=== PATIENT | female | born 1990 | race Caucasian/White ===

== ENCOUNTER 2017-02-27 04:18 | Emergency (ER) | payer OTHER ==
[~2017-02-27] VITALS: Ht 147.3 cm; Wt 59.0 kg
[~2017-02-27 04:18] MED LIST: ACETAMINOP325 MG/10 PO; DIAZEPAM5 MG PO; ESTRADIOL0.5 MG PO; FERROUS SULFAT134 MG PO; IRON325 M1; KLONOPIN2 MG PO; LIALDA1.2 GM PO; PROBIOTIC COMP1 EACH PO; RITALIN10 MG PO; VANCOMYCIN HCL250 MG PO
[2017-02-27] MEDS ORDERED: ACETAMINOPHEN 325 MG TAB PO ONE (04:30)
[2017-02-27] MEDS ORDERED: ACETAMINOPHEN 325 MG TAB ONE (04:35)
[2017-02-27 04:38] LABS: BILIRUBIN,URINE NEGATIVE (NEGATIVE); KETONES,URINE 1+ (NEGATIVE); LEUKOCYTE ESTERASE ,URINE 2+ (NEGATIVE); NITRITE,URINE NEGATIVE (NEGATIVE); PROTEIN,URINE DIPSTICK NEGATIVE (NEGATIVE); URINE UROBILINOGEN 0.2 mg/dL (0.2 - 1)
[2017-02-27 04:40] LABS: CLARITY,URINE SL CLOUDY (CLEAR); COLOR,URINE YELLOW (YELLOW)
[2017-02-27 04:46] LABS: STREPTOCOCCUS GRP A ANTIGEN NEGATIVE (NEGATIVE)
[2017-02-27 04:49] LABS: BACTERIA,URINE MODERATE /HPF; EPITHELIAL CELLS,URINE FEW /LPF; MUCUS,URINE MODERATE (RARE); WBC,URINE (MAN) 21-50 /HPF (0-5)
[2017-02-27 04:56] LABS: INFLUENZAE A&B ANTIGEN (RAPID) NEGATIVE (NEGATIVE)
[2017-02-27 04:57] LABS: AMPHETAMINES SCREEN,URINE NEGATIVE (NEGATIVE); BENZODIAZEPINES SCREEN,URINE NEGATIVE (NEGATIVE); CANNABINOIDS SCREEN,URINE POSITIVE (NEGATIVE); PHENCYCLIDINE SCREEN,URINE NEGATIVE (NEGATIVE)
--- NOTE | 2017-02-27 05:26 | Diagnostic Imaging Report ---
CHEST 2 VIEWS, Technique: CHEST 2 VIEWS Comparison: 03/05/2016 Clinical history: Cough, fever DISCUSSION: Normal appearance of the heart, mediastinum, lungs and pleural spaces. IMPRESSION: No acute abnormality Signed by: Dr Rosaline Hahn MD on 02/27/2017 5:23 AM
[2017-02-27 05:30] VITALS: BP 110/72
[2017-02-27] MEDS ORDERED: CEFTRIAXONE SOD 1 GM VIAL IM STA (05:34)
== END 2017-02-27 06:13 | disposition home or self-care (01) ==
LOC: ER 04:18
DX: R50.9 Fever, unspecified (principal); R05 Cough; J00 Acute nasopharyngitis [common cold]; N30.00 Acute cystitis without hematuria; D89.9 Disorder involving the immune mechanism, unspecified
CPT/HCPCS: 71020; 80307; 81001; 81025; 83518; 87070; 87400; 99283; J0696

== ENCOUNTER 2017-07-12 16:53 | Inpatient (IN) | payer MEDICARE, OTHER ==
[~2017-07-12] VITALS: Ht 147.3 cm; Wt 54.0 kg
--- OUTSIDE RECORDS SUMMARY | 2017-07-12 16:56 | XMS REPORT | Clinical Summary ---
Author Author [facility] Address Unknown Phone Unavailable Care Team Providers Care Dashboard Developer Name Role Phone PCP Unavailable Allergies Active Allergy Reactions Severity Noted Date Comments Hydromorphone (Bulk) Nausea And Vomiting 03/29/2017 constipation Fentanyl Nausea And Vomiting 03/29/2017 Current Medications Prescription Sig. Disp. Refills Start End Date Status Date methylphenidate (RITALIN) Take 10 mg by mouth as Active 20 MG tablet needed . hyoscyamine Take 0.125 mg by mouth Active (ANASPAZ,LEVSIN) 0.125 mg every 4 (four) hours as tablet needed for Cramping. vitamin Take 1 tablet by mouth Active w/qdxwkov-ospq-duowbt daily. ( PLUS) 27 mg iron- 1 mg Tab diphenoxylate-atropine Take 1 tablet by mouth 4 Active (LOMOTIL) 2.5-0.025 mg (four) times daily as per tablet needed for Diarrhea. clonazePAM (KLONOPIN) 1 Take 1 mg by mouth 2 Active MG tablet (two) times daily as needed for Anxiety. TURMERIC ROOT EXTRACT Take by mouth. Active ORAL ECHINACEA ORAL Take by mouth. Active KAVA ROOT ORAL Take by mouth. Active MAGNESIUM ORAL Take by mouth. Active buPROPion (WELLBUTRIN) 75 Take 75 mg by mouth 2 Active MG tablet (two) times daily. traMADol (ULTRAM) 50 mg Take 50 mg by mouth every Active tablet 6 (six) hours as needed for Pain. ACETAMINOPHEN WITH Take by mouth. Active CODEINE (TYLENOL-CODEINE #3 ORAL) LACTOBACILLUS ACIDOPHILUS Take by mouth. Active (PROBIOTIC ORAL) budesonide (ENTOCORT EC) Take 9 mg by mouth every 02/16/20 Discontin 3 mg 24 hr capsule morning . 17 ued clonazePAM (KLONOPIN) 2 Take 2 mg by mouth as 03/29/19 Discontin MG tablet needed for Anxiety . 18 ued loperamide (IMODIUM) 2 mg Take 2 mg by mouth 4 03/29/19 Discontin capsule (four) times daily as 18 ued needed for Diarrhea. calcium carbonate-vitamin Take 2 tablets by mouth 60 tablet 11 02/18/20 D3 (OSCAL-D) 500 daily. 16 17 mg(1,250mg) -200 unit per tablet mesalamine (CANASA) 1000 Place 1 suppository 30 0 02/18/20 02/18/20 MG suppository (1,000 mg total) rectally suppository 16 17 2 (two) times daily. budesonide (UCERIS) 9 mg Take 9 mg by mouth daily. 03/29/19 Discontin TaDE 18 ued HYDROcodone-acetaminophen Take 1 tablet by mouth 30 tablet 0 04/06/19 04/16/19 (NORCO 10-325) 10-325 mg every 6 (six) hours as 18 18 per tablet needed for up to 10 days. Max Daily Amount: 4 tablets Active Problems Problem Noted Date Ulcerative colitis (HCC) 04/04/2017 Lower abdominal pain 02/16/2016 Ulcerative colitis, acute (HCC) 02/16/2016 Bipolar affective disorder in remission ([facility]) 02/16/2016 Encounters Date Type Specialty Care Team Description 04/04/2017 [facility] General Internal Medicine Maureen Malloy MD - Encounter 04/07/2017 04/04/2017 Procedure Pass 04/04/2017 Surgery Maureen Malloy MD LAPAROSCOPY,COLECTOMY TOTAL 04/01/2017 Anesthesia Neelima Goetz MD Event 03/29/2017 Hospital Pre-Admission Testing Maureen Malloy MD Bipolar affective Encounter disorder in remission (HCC) 03/07/2017 Emergency Emergency Medicine Bipolar affective disorder in remission (HCC) 03/07/2017 Orders Only General Internal Medicine 02/15/2017 [facility] Lety Perez MD Encounter 02/15/2017 Anesthesia Chase Alvarez Event MD Nabil 02/15/2017 Procedure Pass 02/15/2017 Surgery Lety Perez MD COLONOSCOPY,BIOPSY after 07/11/2016 Family History Medical History Relation Name Comments Hypertension Father Ulcerative colitis Father COPD Mother Relation Name Status Comments Father Mother Social History Tobacco Use Types Packs/Day Years Used Date Never Smoker Smokeless Tobacco: Never Used Alcohol Use Drinks/Week oz/Week Comments Yes 2 Standard 1.2 occasional drinks or equivalent Sex Assigned at Date Recorded Not on file Last Filed Vital Signs Vital Sign Reading Time Taken Blood Pressure 116/70 04/07/2017 12:40 PM DOCK ATTEND[employer] Pulse 90 04/07/2017 12:40 PM DOCK ATTENDANT Temperature 36.8 C (98.3 F) 04/07/2017 12:40 PM DOCK ATTENDANT Respiratory Rate 18 04/07/2017 12:40 PM DOCK ATTENDANT Oxygen Saturation 99% 04/07/2017 12:40 PM DOCK ATTENDANT Inhaled Oxygen - - Concentration Weight 51.1 kg (112 lb 9.6 oz) 03/29/2017 10:00 AM DOCK ATTENDANT Height 149.9 cm (4' 11") 03/29/2017 10:00 AM DOCK ATTENDANT Body Mass Index 22.74 03/29/2017 10:00 AM DOCK ATTENDANT Plan of Treatment Not on file Procedures Procedure Name Priority Date/Time Associated Diagnosis Comments CYSTOSCOPY,INSERTION 04/04/2017 Ulcerative colitis, URETERAL STENTS 7:30 AM DOCK ATTENDANT unspecified with unspecified complications (CODE) (HCC) Special Needs (LITHOTOMY POSITION, UROLOGY WILL BE CALLING IN SOME STENTS FOR THE PATIENT) LAPAROSCOPY,ILEOSTOMY 04/04/2017 Ulcerative colitis, 7:30 AM DOCK ATTENDANT unspecified with unspecified complications (CODE) (HCC) Special Needs (LITHOTOMY POSITION, UROLOGY WILL BE CALLING IN SOME STENTS FOR THE PATIENT) LAPAROSCOPY,COLECTOMY 04/04/2017 Ulcerative colitis, TOTAL 7:30 AM DOCK ATTENDANT unspecified with unspecified complications (CODE) (HCC) Special Needs (LITHOTOMY POSITION, UROLOGY WILL BE CALLING IN SOME STENTS FOR THE PATIENT) COLONOSCOPY,BIOPSY 02/15/2017 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 Component Value Ref Range WBC 14.3 (H) 3.5 - 10.5 K/ L RBC 2.98 (L) 3.93 - 5.22 M/ L Hemoglobin 8.2 (L) 11.2 - 15.7 GM/DL Hematocrit 26.6 (L) 34.1 - 44.9 % MCV 89.3 79.4 - 94.8 fL MCH 27.5 25.6 - 32.2 pg MCHC 30.8 (L) 32.2 - 35.5 GM/DL RDW 15.6 (H) 11.7 - 14.4 % Platelets 681 (H) 150 - 450 K/CU MM MPV 8.1 (L) 9.4 - 12.3 fL nRBC 0 0 - 0 /100 WBC Specimen Performing Laboratory Blood - Arm, [address] [address] * Phosphorus (04/07/2017 5:11 AM) Only the most recent of 3 results within the time period is included. Component Value Ref Range Phosphorus 3.6 2.3 - 4.7 mg/dL Specimen Performing Laboratory Blood - Arm, [address] [address] * Magnesium (04/07/2017 5:11 AM) Only the most recent of 3 results within the time period is included. Component Value Ref Range Magnesium 1.5 (L) 1.6 - 2.6 mg/dL Specimen Performing Laboratory Blood - Arm, [address] [address] * Basic Metabolic Panel (04/07/2017 5:11 AM) Only the most recent of 4 results within the time period is included. Component Value Ref Range Sodium 140 136 - 145 meq/L Potassium 3.7 3.5 - 5.1 meq/L Chloride 107 98 - 107 meq/L CO2 26 22 - 29 meq/L BUN 4 (L) 7 - 21 mg/dL Creatinine 0.49 (L) 0.57 - 1.25 mg/dL Glucose 85 70 - 105 mg/dL Calcium 8.1 (L) 8.4 - 10.2 mg/dL EGFR 153Comment: ESTIMATED GFR IS NOT ACCURATE mL/min/1.73 sq m CREATININE CLEARANCE IN PREDICTING GLOMERULAR FILTRATION RATE. ESTIMATED GFR IS NOT APPLICABLE FOR DIALYSIS PATIENTS. Specimen Performing Laboratory Blood - Arm, Right [facility] [address] * Tissue Exam (04/04/2017 12:41 PM) Component Value Ref Range Case Report Surgical Pathology Report Case: [id number] Authorizing Provider: Maureen Malloy MD Collected: 04/04/2017 1241 Ordering Location: [facility] Received: 04/04/2017 1328 SERVICES Pathologist: Melanie Camacho MD Specimen: Large Intestine, NOS, Total Colectomy DIAGNOSIS COLON, TOTAL COLECTOMY: - CHRONIC ACTIVE COLITIS (SEE COMMENT) - NEGATIVE FOR GRANULOMA - ILEAL MARGIN UNREMARKABLE - COLONIC MARGIN IS INVOLVED BY CHRONIC ACTIVE COLITIS - NEGATIVE FOR DYSPLASIA OR MALIGNANCY - NEGATIVE FOR VIRAL CYTOPATHIC CHANGES - ALL FIFTY -SEVEN LYMPH NODES SHOW BENIGN AND REACTIVE FEATURES; NEGATIVE FOR MALIGNANCY - APPENDIX: - ACUTE APPENDICITIS WITH MUCOSAL NECROSIS AND SEVERE SEROSITIS - NEGATIVE FOR DYSPLASIA OR MALIGNANCY - SEE COMMENT Signing Pathologist Direct Phone Line: [phone] COMMENT Sections show chronic active colitis, involving colon with variable degrees of severity. The left colon is most severely affected. There are numerous crypt abscesses, cryptitis, crypt architectural distortions and surface ulcerations with underlying granulation tissue. Lymphoplasmacytic inflammation with occasional lymphoid follicles are seen in the lamina propria. No granulomas are seen in any of the sections examined. The inflammation is mostly limited to mucosa with minimal inflammation in the muscularis propria. Severe serositis is present. Terminal ileum appears free of inflammation,. Appendix shows mucosal necrosis, serositis and mild acute inflammation in the wall. The proximal (ileal) margin is unremarkable. Distal (colonic) margin shows chronic active colitis with surface erosion and granulation tissue. There is atypia, favored reactive. No dysplasia or malignancy seen. No viral inclusions are present.The findings are compatible with patient's history of inflammatory bowel disease, ulcerative colitis. All Clinical and radiologic correlation is recommended. CPT Code(s) 90512 CLINICAL HISTORY Ulcerative colitis SPECIMEN SOURCE Total colectomy GROSS DESCRIPTION The specimen is received in a formalin-filled container and labeled with the patient's information and labeled "total colectomy" and consists of a total colectomy measuring 85 cm in length ranging in circumference from 4 to 5.5 cm, terminal ileum measuring 2 cm in length x 3 cm in circumference and appendix measuring 4.6 x 4.6 cm in length x 0.6 cm in diameter. Adipose tissue has thickness of 3 cm. The serosa is elmore-red and dull with adhesions. Majority of the specimen has linear ulcerations creating a cobblestone effect and thickened wall up to 0.8 cm. There is 12 cm in length of normal proximal colon mucosa. The remaining mucosa also has a elmore-red dusky appearance. Grossly, no masses or abnormalities are seen. Fat yields 37 possible elmore lymph nodes on the right side measuring up to 1 cm. Left side contains 11 possible elmore lymph nodes measuring up to 2 cm. Section code: A1, resection margin en face; A2, appendix; A3, ileum ileocecal valve and cecum; A4 and A5, right colon; A6, hepatic flexure; A7 and A8, transverse colon; A9, splenic flexure; A10 and A11, left colon;A12, six possible lymph nodes, right colon; A13, five possible lymph node right side; A14,seven possible lymph nodes right side/ A15, fivepossible lymph nodes right side; A16 through A18, two possible lymph nodes in each cassette, one inked blue, right side; A19, five possible lymph nodes right side; A20, five possible lymph nodes right side; A21, onepossible lymph node right side; A22, one lymph node bisected, left side; A23 and A24, five possible lymph nodes in each cassette, left side. CG/pl MICROSCOPIC DESCRIPTION PERFORMED Specimen Performing Laboratory Tissue - Large Intestine, [facility] NOS [address] [place], [place] [id number] * POCT , urine (04/04/2017 7:00 AM) Only the most recent of 2 results within the time period is included. Component Value Ref Range Test Urine, POC Negative Control line present?, Yes POC Background clear?, POC Yes UPT Cassette Lot #, POC [id number] UPT Cassette Expiration 08/01/2018 Date, POC Specimen Performing Laboratory Urine * TRANSFUSION SERVICE REPORT - SCAN (03/30/2017 5:53 PM) * Type and screen, automated (03/29/2017 11:17 AM) Component Value Ref Range ABO/RH AUTOMATED (BEAKER) B POSITIVE Ab Scrn NEGATIVE Specimen Performing [place] [address] * CBC with platelet count + automated diff (03/29/2017 11:17 AM) Only the most recent of 2 results within the time period is included. Component Value Ref Range WBC 16.8 (H) 3.5 - 10.5 K/ L RBC 3.75 (L) 3.93 - 5.22 M/ L Hemoglobin 10.5 (L) 11.2 - 15.7 GM/DL Hematocrit 33.2 (L) 34.1 - 44.9 % MCV 88.5 79.4 - 94.8 fL MCH 28.0 25.6 - 32.2 pg MCHC 31.6 (L) 32.2 - 35.5 GM/DL RDW 15.2 (H) 11.7 - 14.4 % Platelets 773 (H) 150 - 450 K/CU MM MPV 8.4 (L) 9.4 - 12.3 fL nRBC 0 0 - 0 /100 WBC % Neutros 61 % % Lymphs 20 % % Monos 7 % % Eos 11 % % Baso 1 % # Neutros 10.27 (H) 1.56 - 6.13 K/ L # Lymphs 3.36 1.18 - 3.74 K/ L # Monos 1.15 (H) 0.24 - 0.36 K/ L # Eos 1.81 (H) 0.04 - 0.36 K/ L # Baso 0.08 0.01 - 0.08 K/ L Immature 1 0 - 1 % Granulocytes-Relative Specimen Performing [place] [address] * CBC with platelet count + automated diff (03/29/2017 11:17 AM) Only the most recent of 2 results within the time period is included. Specimen Performing Laboratory Blood Narrative The following orders were created for panel order CBC with platelet count + automated diff. Procedure Abnormality Status --------- - ------ CBC with platelet count ...[[id number]]AbnormalFinal result Please view results for these tests on the individual orders. * ECG 12 lead (03/29/2017 11:16 AM) Only the most recent of 2 results within the time period is included. Specimen Performing Laboratory GE MUSE Narrative Ventricular Rate 95 BPM Atrial Rate 95 BPM P-R Interval 148 ms QRS Duration 68 ms Q-T Interval 346 ms QTC Calculation(Bazett) 434 ms P [place] 73 degrees R [place] 52 degrees T [place] 33 degrees Normal sinus rhythm with sinus arrhythmia Normal ECG When compared with ECG of 07-MAR-2017 16:47, No significant change was found Confirmed by MD Duncan Roberto ([id number]) on 03/29/2017 1:37:20 PM Procedure Note Interface, External Ris In - 03/29/2017 1:37 PM DOCK ATTENDANT Ventricular Rate 95 BPM Atrial Rate 95 BPM P-R Interval 148 ms QRS Duration 68 ms Q-T Interval 346 ms QTC Calculation(Bazett) 434 ms P [place] 73 degrees R [place] 52 degrees T [place] 33 degrees Normal sinus rhythm with sinus arrhythmia Normal ECG When compared with ECG of 07-MAR-2017 16:47, No significant change was found Confirmed by MD Duncan Roberto ([id number]) on 03/29/2017 1:37:20 PM * Rapid Strep A screen (03/07/2017 7:06 PM) Component Value Ref Range Strep A Ag Negative Negative Specimen Performing Laboratory Throat [address] [address] * Comprehensive metabolic panel (03/07/2017 5:33 PM) Component Value Ref Range Protein, Total 6.5 6.0 - 8.3 gm/dL Albumin 2.9 (L) 3.5 - 5.0 g/dL Alkaline Phosphatase 146 40 - 150 U/L Total Bilirubin <0.3 0.2 - 1.2 mg/dL Sodium 140 136 - 145 meq/L Potassium 4.1 3.5 - 5.1 meq/L Chloride 107 98 - 107 meq/L CO2 26 22 - 29 meq/L BUN 9 7 - 21 mg/dL Creatinine 0.59 0.57 - 1.25 mg/dL Glucose 93 70 - 105 mg/dL Calcium 9.0 8.4 - 10.2 mg/dL AST 13 5 - 34 U/L ALT 12 6 - 55 U/L EGFR 123Comment: ESTIMATED GFR IS NOT ACCURATE mL/min/1.73 sq m CREATININE CLEARANCE IN PREDICTING GLOMERULAR FILTRATION RATE. ESTIMATED GFR IS NOT APPLICABLE FOR DIALYSIS PATIENTS. Specimen Performing Laboratory Blood - Arm, Right [address] [address] * ANATOMIC PATHOLOGY SCANNED - SCAN (02/21/2017 10:32 AM) * REPORT OF PROCEDURE - ENDOSCOPY URL (02/15/2017 4:06 PM) after 07/11/2016
--- OUTSIDE RECORDS SUMMARY | 2017-07-12 16:56 | XMS REPORT | Clinical Summary ---
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 Disp. Refills Start End Date Status Date tiZANidine (ZANAFLEX) 4 05/10/19 Active MG tablet 18 clonAZEPAM (KlonoPIN) 2 TAKE 1/2 -1 TABLETS BY 0 04/18/19 Active MG tablet MOUTH DAILY NEEDED 18 (PRN) buPROPion SR (WELLBUTRIN Take 150 mg by mouth 0 04/18/19 Active SR) 150 MG 12 hr tablet daily. 18 clindamycin (CLEOCIN) 300 Take 1 capsule (300 mg 21 capsule 0 03/15/19 MG capsule total) by mouth 3 (three) 18 18 times a day for 7 days. traMADol (ULTRAM) 50 mg Take 1 tablet (50 mg 20 tablet 0 03/08/19 tablet total) by mouth every 6 18 18 (six) hours as needed for moderate pain for up to 3 days. acetaminophen-codeine Take 1-2 tablets by mouth 15 tablet 0 03/11/19 03/16/19 (TYLENOL WITH CODEINE #3) every 6 (six) hours as 18 18 300-30 mg per tablet needed for moderate pain for up to 5 days. naproxen (NAPROSYN) 500 Take 1 tablet (500 mg 60 tablet 0 03/11/19 04/10/19 MG tablet total) by mouth 2 (two) 18 18 times a day with meals for 30 days. aerosol holding chamber Inhale 1 each once for 1 1 each 0 05/14/19 05/14/19 spacer dose. Use as directed 18 18 azithromycin (ZITHROMAX Take 2 tablets the first 6 tablet 0 05/14/19 05/19/19 Z-TOYA) 250 MG tablet day, then 1 tablet daily 18 18 for 4 days. methylPREDNISolone follow package directions 21 tablet 0 05/14/19 (MEDROL DOSEPAK) 4 mg 18 18 tablet codeine-guaifenesin Take 10 mL by mouth 3 200 mL 0 05/14/19 (GUAIFENESIN AC) 10-100 (three) times a day as 18 18 mg/5 mL liquid needed for cough for up to 10 days. albuterol (PROAIR Inhale 2 puffs every 4 1 Inhaler 0 05/14/19 HFA,PROVENTIL (four) hours as needed 18 18 HFA,VENTOLIN HFA) 90 for wheezing for up to 30 mcg/actuation inhaler days. diazePAM (VALIUM) 5 MG Take 1 tablet (5 mg 6 tablet 0 05/14/1905/18 tablet total) by mouth every 8 18 18 (eight) hours as needed for muscle spasms for up to 5 days. Active Problems Not on file Encounters Date Type Specialty Care Team Description 05/13/2017 Emergency Emergency Medicine Violet Jules MD Acute bronchitis, unspecified organism (Primary Dx) 03/11/2017 Emergency Emergency Medicine Sánchez Moraes MD Cough ( Primary Dx) 03/07/2017 Emergency Emergency Medicine Jigar Leon MD Dental impaction (Primary - Dx); 03/08/2017 Leukocytosis, unspecified type; Thrombocytosis after 07/11/2016 Social History Tobacco Use Types Packs/Day Years Used Date Never Smoker Smokeless Tobacco: Never Used Alcohol Use Drinks/Week oz/Week Comments Yes occasionally Sex Assigned at Date Recorded Not on file Last Filed Vital Signs Vital Sign Reading Time Taken Blood Pressure 107/64 05/13/2017 4:00 PM CDT Pulse 86 05/13/2017 4:00 PM CDT Temperature 36.3 C (97.3 F) 05/13/2017 4:00 PM CDT Respiratory Rate 18 05/13/2017 4:00 PM CDT Oxygen Saturation 100% 05/13/2017 4:00 PM CDT Inhaled Oxygen - - Concentration Weight 45.4 kg (100 lb) 05/13/2017 12:47 PM CDT Height 147.3 cm (4' 10") 05/13/2017 12:47 PM CDT Body Mass Index 20.9 05/13/2017 12:47 PM CDT Plan of Treatment Health Maintenance Due Date Last Done Comments PAP SMEAR 11/09/2011 INFLUENZA VACCINE 10/02/2017 Procedures Procedure Name Priority Date/Time Associated Diagnosis Comments ED REFERRAL TO [facility] 05/13/2017 ANGLICAN PHYSICIAN 3:53 PM CDT ORGANIZATION after 07/11/2016 Results * CT Angiogram Pe Chest (05/13/2017 3:26 PM) Only the most recent of 2 results within the time period is included. Specimen Performing Laboratory [facility] [address] [place] [address] Narrative EXAMINATION: CT ANGIOGRAM PE CHEST CLINICAL HISTORY: shortness of breath TECHNIQUE: CT angiographic images of the chest were obtained during intravenous administration of iodinated contrast. Computerized reformatted images and 3-D MIP images were also obtained and archived (CT pulmonary embolus protocol). Radiation dose reduction technique was utilized. COMPARISON: 03/11/2017 IMPRESSION: 1.No evidence of pulmonary embolus. 2.No mediastinal or hilar masses have developed. 3.Interval decrease in size of right middle lobe opacity, probably related to resolving inflammatory process. 4.There are no pleural effusions. [facility]-[id number] Procedure Note Interface, Radiology Results Incoming - 05/13/2017 3:35 PM CDT EXAMINATION: CT ANGIOGRAM PE CHEST CLINICAL HISTORY: shortness of breath TECHNIQUE: CT angiographic images of the chest were obtained during intravenous administration of iodinated contrast. Computerized reformatted images and 3-D MIP images were also obtained and archived (CT pulmonary embolus protocol). Radiation dose reduction technique was utilized. COMPARISON: 03/11/2017 IMPRESSION: 1. No evidence of pulmonary embolus. 2. No mediastinal or hilar masses have developed. 3. Interval decrease in size of right middle lobe opacity, probably related to resolving inflammatory process. 4. There are no pleural effusions. [facility]-[id number] * Estimated GFR (05/13/2017 2:17 PM) Only the most recent of 3 results within the time period is included. Component Value Ref Range GFR Non Af Amer >90 mL/min/1.73 m2 GFR Af Amer >90 mL/min/1.73 m2 Comment: Chronic kidney disease: <60 mL/min/1.73m2 Kidney failure: <15 mL/min/1.73m2 The estimated GFR is calculated from the IDMS-traceable Modification of Diet in Renal Disease Equation. The accuracy of the calculation is poor when the creatinine is normal. Calculated values >90 mL/min/1.73m2 are not reported. This equation has not been validated in children (<18 years), women, the elderly (>70 years), or ethnic groups other than Caucasians and Americans. Specimen Performing Laboratory Plasma specimen [facility], [address] [address] * CBC with platelet and differential (05/13/2017 2:17 PM) Only the most recent of 3 results within the time period is included. Component Value Ref Range WBC 12.90 (H) 4.50 - 11.00 k/uL RBC 5.60 (H) 4.20 - 5.50 m/uL HGB 15.6 12.0 - 16.0 g/dL HCT 46.8 37.0 - 47.0 % MCV 83.6 82.0 - 100.0 fL MCH 27.9 27.0 - 34.0 pg MCHC 33.3 31.0 - 37.0 g/dL RDW - SD 46.9 37.0 - 55.0 fL MPV 10.6 8.8 - 13.2 fL Platelet count 402 (H) 150 - 400 k/uL Neutrophils 79.6 (H) 39.0 - 69.0 % Lymphocytes 12.6 (L) 25.0 - 45.0 % Monocytes 6.0 0.0 - 10.0 % Eosinophils 1.6 0.0 - 5.0 % Basophils 0.2 0.0 - 1.0 % Specimen Performing Laboratory Blood [facility], [address] [address] * Basic metabolic panel (05/13/2017 2:17 PM) Only the most recent of 2 results within the time period is included. Component Value Ref Range Glucose 98 73 - 118 mg/dL BUN 2 (L) 7 - 22 mg/dL Calcium 9.4 8.0 - 10.3 mg/dL Creatinine 0.4 (L) 0.6 - 1.2 mg/dL Sodium 133 128 - 145 mEq/L Potassium 4.0 3.6 - 5.1 mEq/L Chloride 95 (L) 98 - 108 mEq/L CO2 26 18 - 33 mEq/L Anion gap 12 7 - 15 mEq/L Comment: Starting from June , anion gap calculation no longer incorporates potassium. Please note the change. Specimen Performing Laboratory Plasma specimen [facility] [place] [address] * Urinalysis (05/13/2017 1:19 PM) Only the most recent of 3 results within the time period is included. Component Value Ref Range Glucose, UA Negative Negative Bilirubin, UA Negative Negative Ketones, UA Negative Negative Specific gravity, UA 1.010 1.001 - 1.035 Blood, UA Large (A) Negative pH, UA 6.0 5.0 - 8.5 Protein, UA Trace (A) Negative Urobilinogen, UA <2.0 <2.0 Nitrite, UA Negative Negative Leukocyte esterase, UA Moderate (A) Negative Color, UA Yellow Appearance, UA Clear Specimen Performing Laboratory Urine [facility] [place] [address] * hCG qualitative, urine screen (05/13/2017 1:19 PM) Only the most recent of 2 results within the time period is included. Component Value Ref Range hCG qualitative, urine NegativeComment: Sensitivity of HCG test: 25 mIU/mL Specimen Performing Laboratory Urine [facility] [place] [address] * ECG ED Preliminary Interpretation - NOT AN ORDER (05/13/2017 1:03 PM) Only the most recent of 3 results within the time period is included. Clau Jules MD 05/13/20177:04 PM ECG ED Preliminary Interpretation - Not an Order Performed by: VIOLET JULES Authorized by: VIOLET JULES ECG reviewed by ED Physician in the absence of a waiter and cashier: no Previous ECG: Previous ECG:Unavailable Interpretation: Interpretation: normal Rate: ECG rate:102 ECG rate assessment: tachycardic Rhythm: Rhythm: sinus tachycardia Ectopy: Ectopy: none QRS: QRS axis:Normal Conduction: Conduction: normal ST segments: ST segments:Normal T waves: T waves: normal * ECG 12 lead (05/13/2017 12:59 PM) Only the most recent of 3 results within the time period is included. Component Value Ref Range Ventricular rate 102 Atrial rate 102 AK interval 134 QRSD interval 68 QT interval 328 QTC interval 427 P axis 1 76 QRS axis 1 50 T wave axis 32 EKG impression Sinus tachycardia-Otherwise normal ECG-In automated comparison with ECG of 11-MAR-2017 12:56,-No significant change was found- Specimen Performing Laboratory [facility] [address] [place] [address] * XR Chest 2 Vw (03/11/2017 2:50 PM) Specimen Performing Laboratory [facility] [address] [place] [address] Narrative EXAMINATION:XR CHEST 2 VW CLINICAL HISTORY:Chest Pain, Cough XR CHEST 2 VWimages are submitted COMPARISON:NONE FINDINGS: Lines/tubes:None. Heart and mediastinum:Unremarkable Lungs:The lungs are well inflated and clear. There is no evidence of pneumonia or pulmonary edema. Pleura:There is no pleural effusion or pneumothorax. Bones:Mild dextroconvex scoliotic deviation of the thoracic spine. IMPRESSION: Negative for acute cardiopulmonary disease. [facility]-[id number] Procedure Note Interface, Radiology Results Incoming - 03/11/2017 3:03 PM REGIONAL DIRECTOR EXAMINATION: XR CHEST 2 VW CLINICAL HISTORY: Chest Pain, Cough XR CHEST 2 VW images are submitted COMPARISON: NONE FINDINGS: Lines/tubes: None. Heart and mediastinum: Unremarkable Lungs: The lungs are well inflated and clear. There is no evidence of pneumonia or pulmonary edema. Pleura: There is no pleural effusion or pneumothorax. Bones: Mild dextroconvex scoliotic deviation of the thoracic spine. IMPRESSION: Negative for acute cardiopulmonary disease. [facility]-[id number] * Smear review (03/11/2017 1:38 PM) Component Value Ref Range Platelet slide review Mkd increased (A) Polychromasia Moderate Enlarged platelets Moderate (A) Specimen Performing Laboratory [facility], [address] [address] * Troponin, I-Stat (03/11/2017 1:38 PM) Component Value Ref Range Troponin, I-Stat 0.00 0.00 - 0.08 ng/mL Comment: 0.09 - 1.49 ng/ml May indicate increased risk of acute coronary syndrome. >=1.5 ng/ml Consistent with acute myocardial infarction. The diagnostic value of a single normal or non-diagnostic result is questionable. Serial samples at 2-6 hour intervals are required to rule out acute myocardial injury. Specimen Performing Laboratory Plasma specimen [facility], [address] [address] * B natriuretic pep, I-Stat (03/11/2017 1:38 PM) Component Value Ref Range BNP, I-Stat <20 0 - 100 pg/mL Specimen Performing Laboratory Blood [facility] PATHOLOGY AND [facility], [address] [address] * D-dimer (03/11/2017 1:38 PM) Component Value Ref Range D-dimer 0.65 (H) 0.00 - 0.40 ug/mL FEU Comment: Units are ug/ml Fibrinogen Equivalent Unit. When combined with low clinical probability, D-dimer results of less than 0.5 ug/ml FEU have a good negative predictive value in excluding PE or DVT. For D-dimer results greater than 0.5 ug/ml FEU further testing is indicated if PE or DVT is suspected clinically. Elevated D-dimer results have been reported in DVT, PE, and DIC cases and may indicate the presence of a clot. D-dimer results may be elevated due to old age, , inflammatory diseases, trauma, post-operative states, sepsis, and malignancies. Specimen Performing Laboratory Blood [facility] DEPARTMENT OF PATHOLOGY AND GENOMIC MEDICINE [address] [place] [address] * Lactic acid, I-Stat (03/07/2017 11:08 PM) Component Value Ref Range Lactic acid, I-Stat 1.3 0.5 - 2.2 mmol/L Specimen Performing Laboratory Plasma specimen [facility], [address] [address] * Manual differential (03/07/2017 11:08 PM) Component Value Ref Range Manual differential PERFORMED Neutrophils 66.0 39.0 - 69.0 % Lymphocytes 17.0 (L) 25.0 - 45.0 % Monocytes 8.0 0.0 - 10.0 % Eosinophils 9.0 (H) 0.0 - 5.0 % Basophils 0.0 0.0 - 1.0 % Platelet slide review Mkd increased (A) Enlarged platelets Moderate (A) Giant platelets Occasional Specimen Performing Laboratory [facility] DEPARTMENT OF PATHOLOGY AND GENOMIC MEDICINE [address] [place] [address] * Comprehensive metabolic panel (03/07/2017 11:08 PM) Component Value Ref Range Sodium 137 128 - 145 mEq/L Potassium 4.3 3.6 - 5.1 mEq/L CO2 27 18 - 33 mEq/L Chloride 107 98 - 108 mEq/L Glucose 87 73 - 118 mg/dL Calcium 8.8 8.0 - 10.3 mg/dL BUN 4 (L) 7 - 22 mg/dL Creatinine 0.7 0.6 - 1.2 mg/dL Alkaline phosphatase 128 42 - 141 U/L ALT 19 10 - 47 U/L AST 25 11 - 38 U/L Total bilirubin 0.4 0.2 - 1.6 mg/dL Albumin 2.6 (L) 3.3 - 5.5 g/dL Protein 7.1 6.4 - 8.1 g/dL Anion gap 3 (L) 7 - 15 mEq/L Comment: Starting from June , anion gap calculation no longer incorporates potassium. Please note the change. A/G ratio 0.6 (L) 0.7 - 3.8 Specimen Performing Laboratory Plasma specimen [facility] OF [facility]OLOGY [facility] [place] [address] * Blood culture, aerobic & anaerobic (03/07/2017 11:05 PM) Only the most recent of 2 results within the time period is included. Component Value Ref Range Blood culture isolate No growth after 5 days of incubation. Comment: Specimen Information Specimen Source: Blood Specimen Site: Hand, left Specimen Performing Laboratory Blood - Hand, left [facility] DEPARTMENT OF PATHOLOGY AND GENOMIC MEDICINE [address] [place] [address] * Influenza antigen (03/07/2017 10:53 PM) Component Value Ref Range Influenza antigen Negative for Influenza A/B antigen. Comment: Specimen Information Specimen Source: Nares Specimen Site: Not specified Specimen Performing Laboratory Nares - Not specified [facility] [place] [address] after 07/11/2016 Insurance Payer Benefit Subscriber ID Type Phone Address Plan / Group [employer] TH xxxxxxxxxxxx Exchange EXCHANGE [facility] EXCHANGE [employer] E
--- OUTSIDE RECORDS SUMMARY | 2017-07-12 16:56 | XMS REPORT ---
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 Problem Name Problem Code Onset Date Status Entry Date Provider Comment Standard Description Annotate IUD insertion V25.11 Active Shoshana Franks MD Encounter for insertion of intrauterine contraceptive device Contraception counseling V25.09 Active Shoshana Franks MD Encounter for other general counseling and advice on contraceptive management Medication List Medication Instructions Start Date Stop Date Generic Name NDC Status Provider Patient Instruction CLONAZEPAM TABLET CLONAZEPAM TABS 69370463631 Active Shoshana Franks MD Active WELLBUTRIN TABLET BUPROPION HCL TABS 96740511078 Active Shoshana Franks MD Active Vital Signs Date Name Value Unit Range Description blood pressure, diastolic 69 mm[Hg] BP covarrubias blood pressure, systolic 121 mm[Hg] BP sys height E&M 59 [in_us] Bdy height pulse rate E&M 80 /min Heart rate respiratory rate E&M 17 /min Resp rate temperature E&M 98.2 [degF] Body temperature weight E&M 129 [lb_av] Weight Measured blood pressure, diastolic 67 mm[Hg] BP covarrubias blood pressure, systolic 102 mm[Hg] BP sys height E&M 59 [in_us] Bdy height pulse rate E&M 91 /min Heart rate respiratory rate E&M 16 /min Resp rate temperature E&M 98.2 [degF] Body temperature weight E&M 130 [lb_av] Weight Measured Diagnostic Results Date Name Value Unit Range Description Office Visit: Procedures Rm#2 - Chemistry beta HCG, urine, semiquantitative negative Encounters Date Encounter Provider Code Facility 14:01:02 PRICING STRATEGIST Est Patient Problem Focus - 85380 Shoshana Franks MD CPT-47403 [facility] OB 12:35:55 PRICING STRATEGIST New Patient Problem Focus - 40965 Shoshana Franks MD CPT-89283 [facility] OB Procedures Code Procedure Name Date Entry Date Standard Description CPT-53197 IUD Insertion 14:01:03 PRICING STRATEGIST
--- OUTSIDE RECORDS SUMMARY | 2017-07-12 16:56 | XMS REPORT ---
Author [facility] Address Unknown Phone Unavailable Care Team Providers Care Health Management Consultant Name Role Phone MAUREEN SRIVASTAVA Unavailable Unavailable KENIA DIXON Unavailable Unavailable Problems This patient has no known problems. Allergies, Adverse Reactions, Alerts This patient has no known allergies or adverse reactions. Medications This patient has no known medications. Results Test Description Test Time Test Comments Text Results Atomic Results Result Comments TISSUE EXAM 2017-04-08 14:59:00 Surgical Pathology Report Case: [id number] Authorizing Provider: Maureen Srivastava MD Collected: 04/04/2017 1241 Ordering Location: [facility] PERIOPERATIVE Received: 2017 1328 SERVICES Pathologist: Melanie Camacho MD Specimen: Large Intestine, NOS, Total Colectomy COLON, TOTAL COLECTOMY:- CHRONIC ACTIVE COLITIS (SEE COMMENT) - NEGATIVE FOR GRANULOMA - ILEAL MARGIN UNREMARKABLE- COLONIC MARGIN IS INVOLVED BY CHRONIC ACTIVE COLITIS- NEGATIVE FOR DYSPLASIA OR MALIGNANCY- NEGATIVE FOR VIRAL CYTOPATHIC CHANGES- ALL FIFTY -SEVEN LYMPH NODES SHOW BENIGN AND REACTIVE FEATURES; NEGATIVE FOR MALIGNANCY- APPENDIX: - ACUTE APPENDICITIS WITH MUCOSAL NECROSIS AND SEVERE SEROSITIS - NEGATIVE FOR DYSPLASIA OR MALIGNANCY- SEE COMMENT Signing Pathologist Direct Phone Line : [phone] signed by Melanie Camacho MD on 04/08/2017 at 2:59 PMSections show chronic active colitis, involving colon with [...] All Clinical and radiologic correlation is recommended. [id number] colitisTotal colectomyThe specimen is received in a formalin-filled container [...] lymph nodes in each cassette, one inked blue , right side; A19, five possible lymph nodes right side; A20, five possible lymph nodes right side; A21, onepossible lymph node right side; A22, one lymph node bisected, left side; A23 and A24, five possible lymph nodes in each cassette, left side. CG/pl PERFORMED PHOSPHORUS 2017-04-07 06:41:00 PHOSPHORUS (BEAKER) (test qljo=591) 3.6 mg/dL 2.3-4.7 [id number] 06:41:00* Test Item Value Reference Range Comments MAGNESIUM (BEAKER) (test wpih=575) 1.5 mg/dL 1.6-2.6 BASIC METABOLIC [id number] 06:41:00* Test Item Value Reference Range Comments SODIUM (BEAKER) (test zxgo=945) 140 meq/L 136-145 POTASSIUM (BEAKER) (test yujl=496) 3.7 meq/L 3.5-5.1 CHLORIDE (BEAKER) (test bele=383) 107 meq/L 98-107 CO2 (BEAKER) (test vrej=496) 26 meq/L 22-29 BLOOD UREA NITROGEN (BEAKER) (test cksv=926) 4 mg/dL 7-21 CREATININE (BEAKER) (test pwnj=212) 0.49 mg/dL 0.57-1.25 GLUCOSE RANDOM (BEAKER) (test cmnd=794) 85 mg/dL 70-105 CALCIUM (BEAKER) (test wbof=554) 8.1 mg/dL 8.4-10.2 EGFR (BEAKER) (test bpwr=4563) 153 mL/min/1.73 sq m ESTIMATED GFR IS NOT ACCURATE CREATININE CLEARANCE IN PREDICTING GLOMERULAR FILTRATION RATE. ESTIMATED GFR IS NOT APPLICABLE FOR DIALYSIS PATIENTS. CBC (HEMOGRAM ONLY)2017-04-07 05:42:00* Test Item Value Reference Range Comments WHITE BLOOD CELL COUNT (BEAKER) (test uzgh=322) 14.3 K/ L 3.5-10.5 RED BLOOD CELL COUNT (BEAKER) (test lrge=576) 2.98 M/ L 3.93-5.22 HEMOGLOBIN (BEAKER) (test xwzj=775) 8.2 GM/DL 11.2-15.7 HEMATOCRIT (BEAKER) (test xmdf=724) 26.6 % 34.1-44.9 MEAN CORPUSCULAR VOLUME (BEAKER) (test lzby=604) 89.3 fL 79.4-94.8 MEAN CORPUSCULAR HEMOGLOBIN (BEAKER) (test qvkq=734) 27.5 pg 25.6-32.2 MEAN CORPUSCULAR HEMOGLOBIN CONC (BEAKER) (test wunj=541) 30.8 GM/DL 32.2- 35.5 RED CELL DISTRIBUTION WIDTH (BEAKER) (test rgit=563) 15.6 % 11.7-14.4 PLATELET COUNT (BEAKER) (test honi=888) 681 K/CU MM 150-450 MEAN PLATELET VOLUME (BEAKER) (test hfko=560) 8.1 fL 9.4-12.3 NUCLEATED RED BLOOD CELLS (BEAKER) (test hgrg=018) 0 /100 WBC 0-0 [id number] 11:15:00* Test Item Value Reference Range Comments PHOSPHORUS (BEAKER) (test umft=745) 2.3 mg/dL 2.3-4.7 [id number] 11:15:00* Test Item Value Reference Range Comments MAGNESIUM (BEAKER) (test hubl=595) 1.7 mg/dL 1.6-2.6 BASIC METABOLIC [id number] 11:15:00* Test Item Value Reference Range Comments SODIUM (BEAKER) (test pysp=879) 139 meq/L 136-145 POTASSIUM (BEAKER) (test koah=839) 4.2 meq/L 3.5-5.1 CHLORIDE (BEAKER) (test tway=534) 108 meq/L 98-107 CO2 (BEAKER) (test xcly=353) 24 meq/L 22-29 BLOOD UREA NITROGEN (BEAKER) (test dvyf=380) 3 mg/dL 7-21 CREATININE (BEAKER) (test coik=786) 0.57 mg/dL 0.57-1.25 GLUCOSE RANDOM (BEAKER) (test bepq=435) 84 mg/dL 70-105 CALCIUM (BEAKER) (test alsz=492) 8.2 mg/dL 8.4-10.2 EGFR (BEAKER) (test ebje=2927) 128 mL/min/1.73 sq m ESTIMATED GFR IS NOT ACCURATE CREATININE CLEARANCE IN PREDICTING GLOMERULAR FILTRATION RATE. ESTIMATED GFR IS NOT APPLICABLE FOR DIALYSIS PATIENTS. CBC (HEMOGRAM ONLY)2017-04-06 07:00:00* Test Item Value Reference Range Comments WHITE BLOOD CELL COUNT (BEAKER) (test unpd=386) 17.4 K/ L 3.5-10.5 RED BLOOD CELL COUNT (BEAKER) (test wspc=026) 3.16 M/ L 3.93-5.22 HEMOGLOBIN (BEAKER) (test nidp=015) 8.7 GM/DL 11.2-15.7 HEMATOCRIT (BEAKER) (test lgxk=782) 28.5 % 34.1-44.9 MEAN CORPUSCULAR VOLUME (BEAKER) (test iygs=182) 90.2 fL 79.4-94.8 MEAN CORPUSCULAR HEMOGLOBIN (BEAKER) (test vznw=754) 27.5 pg 25.6-32.2 MEAN CORPUSCULAR HEMOGLOBIN CONC (BEAKER) (test ivnx=286) 30.5 GM/DL 32.2- 35.5 RED CELL DISTRIBUTION WIDTH (BEAKER) (test zubs=858) 15.7 % 11.7-14.4 PLATELET COUNT (BEAKER) (test katr=980) 652 K/CU MM 150-450 MEAN PLATELET VOLUME (BEAKER) (test syyu=990) 9.2 fL 9.4-12.3 NUCLEATED RED BLOOD CELLS (BEAKER) (test ldls=250) 0 /100 WBC 0-0 BASIC METABOLIC [id number] 17:45:00* Test Item Value Reference Range Comments SODIUM (BEAKER) (test fpfd=752) 140 meq/L 136-145 POTASSIUM (BEAKER) (test czau=973) 4.3 meq/L 3.5-5.1 CHLORIDE (BEAKER) (test ibej=233) 108 meq/L 98-107 CO2 (BEAKER) (test vcmh=499) 26 meq/L 22-29 BLOOD UREA NITROGEN (BEAKER) (test rkpz=495) 3 mg/dL 7-21 CREATININE (BEAKER) (test bqzw=421) 0.62 mg/dL 0.57-1.25 GLUCOSE RANDOM (BEAKER) (test code=524) 104 mg/dL 70-105 CALCIUM (BEAKER) (test yadt=800) 8.0 mg/dL 8.4-10.2 EGFR (BEAKER) (test ckba=7442) 116 mL/min/1.73 sq m ESTIMATED GFR IS NOT ACCURATE CREATININE CLEARANCE IN PREDICTING GLOMERULAR FILTRATION RATE. ESTIMATED GFR IS NOT APPLICABLE FOR DIALYSIS PATIENTS. BASIC METABOLIC [id number] 04:54:00* Test Item Value Reference Range Comments SODIUM (BEAKER) (test xedf=174) 138 meq/L 136-145 POTASSIUM (BEAKER) (test kliu=698) 4.4 meq/L 3.5-5.1 CHLORIDE (BEAKER) (test upve=520) 110 meq/L 98-107 CO2 (BEAKER) (test dsyc=686) 22 meq/L 22-29 BLOOD UREA NITROGEN (BEAKER) (test nhza=327) 3 mg/dL 7-21 CREATININE (BEAKER) (test rqhy=076) 1.33 mg/dL 0.57-1.25 GLUCOSE RANDOM (BEAKER) (test ural=266) 100 mg/dL 70-105 CALCIUM (BEAKER) (test rhvp=423) 7.6 mg/dL 8.4-10.2 EGFR (BEAKER) (test lyzz=1981) 48 mL/min/1.73 sq m ESTIMATED GFR IS NOT ACCURATE CREATININE CLEARANCE IN PREDICTING GLOMERULAR FILTRATION RATE. ESTIMATED GFR IS NOT APPLICABLE FOR DIALYSIS PATIENTS. CBC (HEMOGRAM ONLY)2017-04-05 04:52:00* Test Item Value Reference Range Comments WHITE BLOOD CELL COUNT (BEAKER) (test xabj=471) 18.1 K/ L 3.5-10.5 RED BLOOD CELL COUNT (BEAKER) (test ufhu=797) 2.93 M/ L 3.93-5.22 HEMOGLOBIN (BEAKER) (test lyik=353) 8.1 GM/DL 11.2-15.7 HEMATOCRIT (BEAKER) (test zfxi=711) 26.2 % 34.1-44.9 MEAN CORPUSCULAR VOLUME (BEAKER) (test mtrk=581) 89.4 fL 79.4-94.8 MEAN CORPUSCULAR HEMOGLOBIN (BEAKER) (test orws=574) 27.6 pg 25.6-32.2 MEAN CORPUSCULAR HEMOGLOBIN CONC (BEAKER) (test ivja=004) 30.9 GM/DL 32.2- 35.5 RED CELL DISTRIBUTION WIDTH (BEAKER) (test djua=752) 15.3 % 11.7-14.4 PLATELET COUNT (BEAKER) (test hcbw=563) 637 K/CU MM 150-450 MEAN PLATELET VOLUME (BEAKER) (test tcmj=826) 8.1 fL 9.4-12.3 NUCLEATED RED BLOOD CELLS (BEAKER) (test vzxu=201) 0 /100 WBC 0-0 [id number] 04:51:00* Test Item Value Reference Range Comments PHOSPHORUS (BEAKER) (test muzt=694) 3.6 mg/dL 2.3-4.7 [id number] 04:51:00* Test Item Value Reference Range Comments MAGNESIUM (BEAKER) (test hobl=341) 1.5 mg/dL 1.6-2.6 CBC W/PLT COUNT & AUTO [id number] 11:58:00* Test Item Value Reference Range Comments WHITE BLOOD CELL COUNT (BEAKER) (test lfxt=567) 16.8 K/ L 3.5-10.5 RED BLOOD CELL COUNT (BEAKER) (test xntw=192) 3.75 M/ L 3.93-5.22 HEMOGLOBIN (BEAKER) (test tusg=847) 10.5 GM/DL 11.2-15.7 HEMATOCRIT (BEAKER) (test vuyi=555) 33.2 % 34.1-44.9 MEAN CORPUSCULAR VOLUME (BEAKER) (test xbkf=907) 88.5 fL 79.4-94.8 MEAN CORPUSCULAR HEMOGLOBIN (BEAKER) (test cwmh=614) 28.0 pg 25.6-32.2 MEAN CORPUSCULAR HEMOGLOBIN CONC (BEAKER) (test awxd=770) 31.6 GM/DL 32.2- 35.5 RED CELL DISTRIBUTION WIDTH (BEAKER) (test ztoj=932) 15.2 % 11.7-14.4 PLATELET COUNT (BEAKER) (test xgsu=805) 773 K/CU MM 150-450 MEAN PLATELET VOLUME (BEAKER) (test enhu=198) 8.4 fL 9.4-12.3 NUCLEATED RED BLOOD CELLS (BEAKER) (test cxeh=694) 0 /100 WBC 0-0 NEUTROPHILS RELATIVE PERCENT (BEAKER) (test yfsm=612) 61 % LYMPHOCYTES RELATIVE PERCENT (BEAKER) (test guvw=913) 20 % MONOCYTES RELATIVE PERCENT (BEAKER) (test snll=358) 7 % EOSINOPHILS RELATIVE PERCENT (BEAKER) (test deki=143) 11 % BASOPHILS RELATIVE PERCENT (BEAKER) (test qucr=879) 1 % NEUTROPHILS ABSOLUTE COUNT (BEAKER) (test vyiy=126) 10.27 K/ L 1.56-6.13 LYMPHOCYTES ABSOLUTE COUNT (BEAKER) (test hvsx=143) 3.36 K/ L 1.18-3.74 MONOCYTES ABSOLUTE COUNT (BEAKER) (test wfjr=342) 1.15 K/ L 0.24-0.36 EOSINOPHILS ABSOLUTE COUNT (BEAKER) (test ndsw=344) 1.81 K/ L 0.04-0.36 BASOPHILS ABSOLUTE COUNT (BEAKER) (test kddq=664) 0.08 K/ L 0.01-0.08 IMMATURE GRANULOCYTES-RELATIVE PERCENT (BEAKER) (test boav=1320) 1 % 0-1 RAPID STREP A [id number] 19:54:00* Test Item Value Reference Range Comments STREP A ANTIGEN (BEAKER) (test vvzh=435) Negative Negative COMPREHENSIVE METABOLIC [id number] 18:12:00* Test Item Value Reference Range Comments TOTAL PROTEIN (BEAKER) (test qpjt=809) 6.5 gm/dL 6.0-8.3 ALBUMIN (BEAKER) (test pjle=8596) 2.9 g/dL 3.5-5.0 ALKALINE PHOSPHATASE (BEAKER) (test rhqs=988) 146 U/L 40-150 BILIRUBIN TOTAL (BEAKER) (test kzur=359) < mg/dL 0.2-1.2 SODIUM (BEAKER) (test odxg=187) 140 meq/L 136-145 POTASSIUM (BEAKER) (test gczz=632) 4.1 meq/L 3.5-5.1 CHLORIDE (BEAKER) (test bcxz=707) 107 meq/L 98-107 CO2 (BEAKER) (test sycp=535) 26 meq/L 22-29 BLOOD UREA NITROGEN (BEAKER) (test iglb=813) 9 mg/dL 7-21 CREATININE (BEAKER) (test ksvd=493) 0.59 mg/dL 0.57-1.25 GLUCOSE RANDOM (BEAKER) (test pnbm=430) 93 mg/dL 70-105 CALCIUM (BEAKER) (test ngwy=324) 9.0 mg/dL 8.4-10.2 AST (SGOT) (BEAKER) (test sxpv=544) 13 U/L 5-34 ALT (SGPT) (BEAKER) (test weow=717) 12 U/L 6-55 EGFR (BEAKER) (test aiyg=8793) 123 mL/min/1.73 sq m ESTIMATED GFR IS NOT ACCURATE CREATININE CLEARANCE IN PREDICTING GLOMERULAR FILTRATION RATE. ESTIMATED GFR IS NOT APPLICABLE FOR DIALYSIS PATIENTS. CBC W/PLT COUNT & AUTO [id number] 17:44:00* Test Item Value Reference Range Comments WHITE BLOOD CELL COUNT (BEAKER) (test tymq=368) 16.7 K/ L 3.5-10.5 RED BLOOD CELL COUNT (BEAKER) (test bqbr=746) 3.62 M/ L 3.93-5.22 HEMOGLOBIN (BEAKER) (test tyaw=232) 10.4 GM/DL 11.2-15.7 HEMATOCRIT (BEAKER) (test icqn=705) 32.4 % 34.1-44.9 MEAN CORPUSCULAR VOLUME (BEAKER) (test yjbe=626) 89.5 fL 79.4-94.8 MEAN CORPUSCULAR HEMOGLOBIN (BEAKER) (test zkmg=700) 28.7 pg 25.6-32.2 MEAN CORPUSCULAR HEMOGLOBIN CONC (BEAKER) (test gdks=204) 32.1 GM/DL 32.2- 35.5 RED CELL DISTRIBUTION WIDTH (BEAKER) (test oeit=574) 12.6 % 11.7-14.4 PLATELET COUNT (BEAKER) (test djkn=119) 1066 K/CU MM 150-450 MEAN PLATELET VOLUME (BEAKER) (test xfov=896) 8.2 fL 9.4-12.3 NUCLEATED RED BLOOD CELLS (BEAKER) (test nhbn=517) 0 /100 WBC 0-0 NEUTROPHILS RELATIVE PERCENT (BEAKER) (test jwpf=814) 56 % LYMPHOCYTES RELATIVE PERCENT (BEAKER) (test jpnj=115) 28 % MONOCYTES RELATIVE PERCENT (BEAKER) (test mlys=566) 6 % EOSINOPHILS RELATIVE PERCENT (BEAKER) (test sukr=888) 10 % BASOPHILS RELATIVE PERCENT (BEAKER) (test cuuc=770) 0 % NEUTROPHILS ABSOLUTE COUNT (BEAKER) (test qqpr=960) 9.31 K/ L 1.56-6.13 LYMPHOCYTES ABSOLUTE COUNT (BEAKER) (test cuws=713) 4.59 K/ L 1.18-3.74 MONOCYTES ABSOLUTE COUNT (BEAKER) (test lrfn=405) 1.02 K/ L 0.24-0.36 EOSINOPHILS ABSOLUTE COUNT (BEAKER) (test fams=618) 1.61 K/ L 0.04-0.36 BASOPHILS ABSOLUTE COUNT (BEAKER) (test obgr=385) 0.06 K/ L 0.01-0.08 IMMATURE GRANULOCYTES-RELATIVE PERCENT (BEAKER) (test pasn=8407) 1 % 0-1 CHEST 2 VIEWS [place] [address] Patient Name: TYLER REINA MR # : [id number] : 1990 Age/Sex: 26/F Req #: [id number] Adm Physician: Ordered by: KENIA DIXON MD Report #: [id number] Location: ER Room/Bed: Procedure: [id number] DX/CHEST 2 VIEWS Exam Date: Exam Time: REPORT STATUS: Signed CHEST 2 VIEWS, Technique: CHEST 2 VIEWS Comparison: 03/05/2016 Clinical history: Cough, fever DISCUSSION: Normal appearance of the heart, mediastinum, lungs and pleural spaces. IMPRESSION: No acute abnormality Signed by: Dr Jos Hahn MD on 02/27 5:23 AM Dictated By: JOS HAHN MD 2 Transcribed By: MIKE on 02/27/17522 COPY TO: KENIA DIXON MD
[2017-07-12] MEDS ORDERED: SODIUM CHLORIDE 0.9% 1000ML 1,000 ML IV STA ×2 (17:05→20:14)
[2017-07-12] MEDS ORDERED: METOCLOPRAMIDE HCL 10 MG/2ML VIAL IV ONE (17:15)
[2017-07-12] MEDS ORDERED: DICYCLOMINE HCL 20 MG/2 ML VIAL IM ONE (17:15)
[2017-07-12] MEDS ORDERED: DIATRIZOATE MEGL/DIATRIZOA SOD 30 ML BTL PO ONE (19:25)
[2017-07-12 20:00] LABS: ALANINE AMINOTRANSFERASE 28 IU/L (0-55); ALBUMIN 4.4 g/dL (3.5-5.0); ALBUMIN/GLOBULIN RATIO 0.9 (0.8-2.0); ALKALINE PHOSPHATASE 132 IU/L (40-150); ANION GAP 18.6 mmol/L (8-16); BLOOD UREA NITROGEN 16 mg/dL (7-26); BUN/CREATININE RATIO 20 (6-25); CALCIUM 10.3 mg/dL (8.4-10.2); CARBON DIOXIDE 19 mmol/L (22-29); CHLORIDE 103 mmol/L (98-107); CREATININE, SERUM 0.79 mg/dL (0.57-1.11); EST GLOMERULAR FILTRATION RATE > 60 ML/MIN (60-); GLUCOSE 128 mg/dL (74-118); LIPASE 38 U/L (8-78); POTASSIUM 3.6 mmol/L (3.5-5.1); SODIUM 137 mmol/L (136-145)
--- NOTE | 2017-07-12 21:02 | Diagnostic Imaging Report ---
EXAM: CT Abdomen and Pelvis WITH contrast INDICATION: \S\abd pain \S\[id number] \S\2015 \S\N COMPARISON: CT abdomen and pelvis 03/02/2016 TECHNIQUE: Abdomen and pelvis were scanned utilizing a multidetector helical scanner from the lung base to the pubic symphysis after administration of IV contrast. Coronal and sagittal reformations were obtained. Routine protocol was performed. Scan was performed when during portal venous phase. IV CONTRAST: 100 mL of Isovue-370 ORAL CONTRAST: Water RADIATION DOSE: Total DLP: 187 mGy*cm Estimated effective dose: (DLP x 0.015 x size factor) mSv COMPLICATIONS: None FINDINGS: LINES and TUBES: None. LOWER THORAX: Reticular nodular scarring in the right middle lobe, not included on prior CT and not well-visualized on prior chest x-ray from 02/27/2017. HEPATOBILIARY: No focal hepatic lesions. No biliary ductal dilation. GALLBLADDER: No radio-opaque stones or sludge. No wall thickening. SPLEEN: No splenomegaly. PANCREAS: No focal masses or ductal dilatation. ADRENALS: No adrenal nodules KIDNEYS/URETERS: Kidneys enhance symmetrically. No hydronephrosis. No cystic or solid mass lesions. No stones. 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 The small bowel is normal in caliber. Mild wall thickening of few loops of jejunum in the left upper quadrant. The stomach is severely distended. PELVIC ORGANS/BLADDER: IUD in place. The uterus is normal in size. No adnexal masses. The urinary bladder appears unremarkable. LYMPH NODES: No lymphadenopathy. VESSELS: Unremarkable. PERITONEUM / RETROPERITONEUM: No free air or fluid. BONES: Unremarkable. SOFT TISSUES: Unremarkable. IMPRESSION: Status post colectomy with right lower quadrant ileostomy. Mild wall thickening of a few loops of small bowel in the left upper quadrant without dilatation. Severe distention of the stomach Otherwise, unremarkable CT abdomen and pelvis. Signed by: Dr. Qi Beth M.D. on 07/12/2017 8:59 PM
[2017-07-12 21:11] LABS: BASOPHILS % 0.1 % (0.0-1.0); HEMATOCRIT 35.7 % (34.2-44.1); HEMOGLOBIN 12.1 g/dL (12.0-16.0); LYMPHOCYTES # (AUTO) 0.4 (1.0-3.2); LYMPHOCYTES % 2.1 % (18.0-39.1); MEAN CORPUSCULAR HEMOGLOBIN 27.4 pg (28-32); MEAN CORPUSCULAR HGB CONC 33.9 g/dL (31-35); MEAN CORPUSCULAR VOLUME 80.8 fL (81-99); MONOCYTES # (AUTO) 0.2 (0.2-0.8); MONOCYTES % 1.1 % (4.4-11.3); NEUTROPHILS # (AUTO) 18.2 (2.1-6.9); NEUTROPHILS % 96.4 % (38.7-80.0); PLATELET COUNT 419 x10e3/uL (140-360); RED BLOOD COUNT 4.42 x10e6/uL (3.6-5.1)
[2017-07-12 21:13] LABS: BILIRUBIN,URINE NEGATIVE (NEGATIVE); CLARITY,URINE SL CLOUDY (CLEAR); COLOR,URINE YELLOW (YELLOW); KETONES,URINE NEGATIVE (NEGATIVE); LEUKOCYTE ESTERASE ,URINE NEGATIVE (NEGATIVE); NITRITE,URINE NEGATIVE (NEGATIVE); PROTEIN,URINE DIPSTICK TRACE (NEGATIVE); URINE UROBILINOGEN 0.2 mg/dL (0.2 - 1)
[2017-07-12 21:16] LABS: AMPHETAMINES SCREEN,URINE NEGATIVE (NEGATIVE); BENZODIAZEPINES SCREEN,URINE POSITIVE (NEGATIVE); PHENCYCLIDINE SCREEN,URINE NEGATIVE (NEGATIVE)
[2017-07-12 21:25] LABS: BACTERIA,URINE FEW /HPF; EPITHELIAL CELLS,URINE MODERATE /LPF; TRANSITIONAL EPI CELLS,URINE FEW; WBC,URINE (MAN) 0-5 /HPF (0-5)
[2017-07-12] MEDS ORDERED: MORPHINE SULFATE 2 MG/ML SYR IV PRN (22:00)
[2017-07-12] MEDS ORDERED: PIPER-TAZ 3.375 GM 50 ML IV SCH (22:00)
[2017-07-12] MEDS ORDERED: D5.45%NS/KCL 20MEQ 1,000 ML IV ONE (22:00)
[2017-07-12] MEDS ORDERED: BENZOCAINE/TETRACAINE/BUTAMBEN AERO SPRAY 56 GM CAN TOP ONE (22:00)
[2017-07-12] MEDS ORDERED: ONDANSETRON HCL 4 MG ORAL DISINTEGRATING TAB PO PRN (22:00)
--- OUTSIDE RECORDS SUMMARY | 2017-07-12 22:12 | XMS REPORT | Clinical Summary ---
Author Author [facility] Address Unknown Phone Unavailable Care Team Providers Care Instrument Tester Name Role Phone Asked, Pcp PCP Unavailable [...] Date/Time Associated Diagnosis Comments ED REFERRAL TO [facility] 05/13/2017 RESTORATION[facility] PHYSICIAN 3:53 PM CDT ORGANIZATION after 07/11/2016 Results * CT Angiogram Pe Chest (05/13/2017 3:26 PM) Only the most recent of 2 results within the time period is included. Specimen Performing Laboratory [facility] [address] [place] [address] Narrative EXAMINATION: CT ANGIOGRAM PE CHEST CLINICAL [...] inflammatory process. 4.There are no pleural effusions. [id number] Procedure Note Interface, Radiology Results Incoming - [...] process. 4. There are no pleural effusions. [id number] * Estimated GFR (05/13/2017 2:17 PM) Only [...] and Americans. Specimen Performing Laboratory Plasma specimen [facility], [address] [address] * CBC with platelet and differential (05/13/2017 [...] Blood [facility]INE, [address] [address] * Basic metabolic panel (05/13/2017 2:17 PM) [...] the change. Specimen Performing Laboratory Plasma specimen [facility] [place] [address] * Urinalysis (05/13/2017 1:19 PM) Only the [...] Appearance, UA Clear Specimen Performing Laboratory Urine [facility] [place] [address] * hCG qualitative, urine screen (05/13/2017 1:19 PM) Only the most recent of 2 results within the time period is included. Component Value Ref Range hCG qualitative, urine NegativeComment: Sensitivity of HCG test: 25 mIU/mL Specimen Performing Laboratory Urine [facility] [place] [address] * ECG ED Preliminary Interpretation - NOT AN ORDER (05/13/2017 1:03 PM) Only the most recent of 3 results within the time period is included. Clau Jules MD 05/13/20177:04 PM ECG ED Preliminary Interpretation - Not an Order Performed by: VIOLET JULES Authorized by: VIOLET JULES ECG reviewed by ED Physician in the absence of a manager document: no Previous ECG: Previous ECG:Unavailable Interpretation: Interpretation: [...] Range Ventricular rate 102 Atrial rate 102 UT interval 134 QRSD interval 68 QT interval 328 QTC interval 427 P axis 1 76 QRS axis 1 50 T wave axis 32 EKG impression Sinus tachycardia-Otherwise normal ECG-In automated comparison with ECG of 11-MAR-2017 12:56,-No significant change was found- Specimen Performing Laboratory [facility] [address] [place] [address] * XR Chest 2 Vw (03/11/2017 2:50 PM) Specimen Performing Laboratory [facility] [address] [place] [address] Narrative EXAMINATION:XR CHEST 2 VW CLINICAL HISTORY:Chest Pain, Cough XR CHEST 2 VWimages are submitted COMPARISON:NONE FINDINGS: Lines/tubes:None. Heart and mediastinum:Unremarkable Lungs:The lungs are well inflated and clear. There is no evidence of pneumonia or pulmonary edema. Pleura:There is no pleural effusion or pneumothorax. Bones:Mild dextroconvex scoliotic deviation of the thoracic spine. IMPRESSION: Negative for acute cardiopulmonary disease. [id number] Procedure Note Interface, Radiology Results Incoming - 03/11/2017 3:03 PM TEAM COORDINATOR EXAMINATION: XR CHEST 2 VW CLINICAL HISTORY: [...] spine. IMPRESSION: Negative for acute cardiopulmonary disease. [id number] * Smear review (03/11/2017 1:38 PM) Component Value Ref Range Platelet slide review Mkd increased (A) Polychromasia Moderate Enlarged platelets Moderate (A) Specimen Performing Laboratory [facility], [address] [address] * Troponin, I-Stat (03/11/2017 1:38 PM) Component [...] myocardial injury. Specimen Performing Laboratory Plasma specimen [facility], [address] [address] * B natriuretic pep, I-Stat (03/11/2017 1:38 PM) Component Value Ref Range BNP, I-Stat <20 0 - 100 pg/mL Specimen Performing Laboratory Blood [facility], [address] [address] * D-dimer (03/11/2017 1:38 PM) Component Value [...] sepsis, and malignancies. Specimen Performing Laboratory Blood [facility] [address] [place] [address] * Lactic acid, I-Stat (03/07/2017 11:08 PM) Component Value Ref Range Lactic acid, I-Stat 1.3 0.5 - 2.2 mmol/L Specimen Performing Laboratory Plasma specimen [facility], [address] [address] * Manual differential (03/07/2017 11:08 PM) Component Value Ref Range Manual differential PERFORMED Neutrophils 66.0 39.0 - 69.0 % Lymphocytes 17.0 (L) 25.0 - 45.0 % Monocytes 8.0 0.0 - 10.0 % Eosinophils 9.0 (H) 0.0 - 5.0 % Basophils 0.0 0.0 - 1.0 % Platelet slide review Mkd increased (A) Enlarged platelets Moderate (A) Giant platelets Occasional Specimen Performing Laboratory [facility] [address] [place] [address] * Comprehensive metabolic panel (03/07/2017 11:08 PM) [...] Laboratory Plasma specimen [facility] OF [facility]OLOGY [facility] [place] [address] * Blood culture, aerobic & anaerobic (03/07/2017 11:05 PM) Only the most recent of 2 results within the time period is included. Component Value Ref Range Blood culture isolate No growth after 5 days of incubation. Comment: Specimen Information Specimen Source: Blood Specimen Site: Hand, left Specimen Performing Laboratory Blood - Hand, left [facility] [address] [place] [address] * Influenza antigen (03/07/2017 10:53 PM) Component Value Ref Range Influenza antigen Negative for Influenza A/B antigen. Comment: Specimen Information Specimen Source: Nares Specimen Site: Not specified Specimen Performing Laboratory Nares - Not specified [facility] [place] [address] after 07/11/2016 Insurance Payer Benefit Subscriber ID Type Phone Address Plan / Group appAttach TH xxxxxxxxxxxx Exchange EXCHANGE [facility] EXCHANGE [employer] E
--- OUTSIDE RECORDS SUMMARY | 2017-07-12 22:12 | XMS REPORT | Clinical Summary ---
Author Author [facility] Address Unknown Phone Unavailable Care Team Providers Care Waybill Clerk Name Role Phone PCP Unavailable Allergies Active [...] vitamin Take 1 tablet by mouth Active w/faqwdhq-saoe-qeplrw daily. ( PLUS) 27 mg iron- 1 [...] (HCC) 02/16/2016 Bipolar affective disorder in remission ([facility]) 02/16/2016 Encounters Date Type Specialty Care Team Description 04/04/2017 [facility] General Internal Medicine Maureen Malloy MD - Encounter 04/07/2017 04/04/2017 Procedure Pass 04/04/2017 Surgery Maureen Malloy MD LAPAROSCOPY,COLECTOMY TOTAL 04/01/2017 Anesthesia Neelima Goetz MD Event 03/29/2017 Hospital Pre-Admission Testing Maureen Malloy MD Bipolar affective Encounter disorder in remission (HCC) 03/07/2017 Emergency Emergency Medicine Bipolar affective disorder in remission (HCC) 03/07/2017 Orders Only General Internal Medicine 02/15/2017 [facility] Lety Perez MD Encounter 02/15/2017 Anesthesia [...] Taken Blood Pressure 116/70 04/07/2017 12:40 PM CASTING ASSISTANT Pulse 90 04/07/2017 12:40 PM CASTING ASSISTANT Temperature 36.8 C (98.3 F) 04/07/2017 12:40 PM CASTING ASSISTANT Respiratory Rate 18 04/07/2017 12:40 PM CASTING ASSISTANT Oxygen Saturation 99% 04/07/2017 12:40 PM CASTING ASSISTANT Inhaled Oxygen - - Concentration Weight 51.1 kg (112 lb 9.6 oz) 03/29/2017 10:00 AM CASTING ASSISTANT Height 149.9 cm (4' 11") 03/29/2017 10:00 AM CASTING ASSISTANT Body Mass Index 22.74 03/29/2017 10:00 AM CASTING ASSISTANT Plan of Treatment Not on file Procedures Procedure Name Priority Date/Time Associated Diagnosis Comments CYSTOSCOPY,INSERTION 04/04/2017 Ulcerative colitis, URETERAL STENTS 7:30 AM CASTING ASSISTANT unspecified with unspecified complications (CODE) (HCC) Special Needs (LITHOTOMY POSITION, UROLOGY WILL BE CALLING IN SOME STENTS FOR THE PATIENT) LAPAROSCOPY,ILEOSTOMY 04/04/2017 Ulcerative colitis, 7:30 AM CASTING ASSISTANT unspecified with unspecified complications (CODE) (HCC) Special Needs (LITHOTOMY POSITION, UROLOGY WILL BE CALLING IN SOME STENTS FOR THE PATIENT) LAPAROSCOPY,COLECTOMY 04/04/2017 Ulcerative colitis, TOTAL 7:30 AM CASTING ASSISTANT unspecified with unspecified complications (CODE) (HCC) Special Needs (LITHOTOMY POSITION, UROLOGY WILL BE CALLING IN SOME STENTS FOR THE PATIENT) COLONOSCOPY,BIOPSY 02/15/2017 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 Component Value Ref Range Phosphorus 3.6 2.3 - 4.7 mg/dL Specimen Performing Laboratory Blood - Arm, [address] [address] * Magnesium (04/07/2017 5:11 AM) Only the most recent of 3 results within the time period is included. Component Value Ref Range Magnesium 1.5 (L) 1.6 - 2.6 mg/dL Specimen Performing Laboratory Blood - Arm, [address] [address] * Basic Metabolic Panel (04/07/2017 5:11 AM) [...] Laboratory Blood - Arm, Right [facility] [address] * Tissue Exam (04/04/2017 12:41 PM) Component Value Ref Range Case Report Surgical Pathology Report Case: [id number] Authorizing Provider: Maureen Malloy MD Collected: 04/04/2017 1241 Ordering Location: [facility] Received: 04/04/2017 1328 SERVICES Pathologist: Melanie [...] SEE COMMENT Signing Pathologist Direct Phone Line: [phone] COMMENT Sections show chronic active colitis, involving [...] and radiologic correlation is recommended. CPT Code(s) 75933 CLINICAL HISTORY Ulcerative colitis SPECIMEN SOURCE Total [...] Specimen Performing Laboratory Tissue - Large Intestine, [facility] NOS [address] [place], [place] [id number] * POCT , urine (04/04/2017 7:00 AM) Only the most recent of 2 results within the time period is included. Component Value Ref Range Test Urine, POC Negative Control line present?, Yes POC Background clear?, POC Yes UPT Cassette Lot #, POC [id number] UPT Cassette Expiration 08/01/2018 Date, POC Specimen Performing Laboratory Urine * TRANSFUSION SERVICE REPORT - SCAN (03/30/2017 5:53 PM) * Type and screen, automated (03/29/2017 11:17 AM) Component Value Ref Range ABO/RH AUTOMATED (BEAKER) B POSITIVE Ab Scrn NEGATIVE Specimen [place] [address] * CBC with platelet count + automated [...] % Granulocytes-Relative Specimen Performing Laboratory [place] [address] * CBC with platelet count + automated diff (03/29/2017 11:17 AM) Only the most recent of 2 results within the time period is included. Specimen Performing Laboratory Blood Narrative The following orders were created for panel order CBC with platelet count + automated diff. Procedure Abnormality Status --------- - ------ CBC with platelet count ...[[id number]]AbnormalFinal result Please view results for these tests on the individual orders. * ECG 12 lead (03/29/2017 11:16 AM) Only the most recent of 2 results within the time period is included. Specimen Performing Laboratory GE MUSE Narrative Ventricular Rate 95 BPM Atrial Rate 95 BPM P-R Interval 148 ms QRS Duration 68 ms Q-T Interval 346 ms QTC Calculation(Bazett) 434 ms P [place] 73 degrees R [place] 52 degrees T [place] 33 degrees Normal sinus rhythm with sinus arrhythmia Normal ECG When compared with ECG of 07-MAR-2017 16:47, No significant change was found Confirmed by MD Duncan Roberto ([id number]) on 03/29/2017 1:37:20 PM Procedure Note Interface, External Ris In - 03/29/2017 1:37 PM CASTING ASSISTANT Ventricular Rate 95 BPM Atrial Rate 95 BPM P-R Interval 148 ms QRS Duration 68 ms Q-T Interval 346 ms QTC Calculation(Bazett) 434 ms P [place] 73 degrees R [place] 52 degrees T [place] 33 degrees Normal sinus rhythm with sinus arrhythmia Normal ECG When compared with ECG of 07-MAR-2017 16:47, No significant change was found Confirmed by MD Duncan Roberto ([id number]) on 03/29/2017 1:37:20 PM * Rapid Strep A screen (03/07/2017 7:06 PM) Component Value Ref Range Strep A Ag Negative Negative Specimen Performing Laboratory Throat [address] [address] * Comprehensive metabolic panel (03/07/2017 5:33 PM) [...] Specimen Performing Laboratory Blood - Arm, Right [address] [address] * ANATOMIC PATHOLOGY SCANNED - SCAN (02/21/2017 10:32 AM) * REPORT OF PROCEDURE - ENDOSCOPY URL (02/15/2017 4:06 PM) after 07/11/2016
--- OUTSIDE RECORDS SUMMARY | 2017-07-12 22:13 | XMS REPORT ---
Author Author Admin, [place] Organization [facility] Address [address] [place] [address] Phone Allergies, Adverse Reactions, Alerts Allergy Name Reaction Description Start Date Severity Status Provider No Known Allergies Renetta Anaya [employer] Conditions or Problems Problem Name Problem Code [...] Provider Patient Instruction CLONAZEPAM TABLET CLONAZEPAM TABS 83604904890 Active Shoshana Franks MD Active WELLBUTRIN TABLET BUPROPION HCL TABS 09604863947 Active Shoshana Franks MD Active Vital Signs [...] Encounters Date Encounter Provider Code Facility 14:01:02 WATER 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 OB 12:35:55 WATER [employer] LAYER New Patient Problem Focus - 08547 Shoshana Franks MD CPT-84867 [facility] OB Procedures Code Procedure Name Date Entry Date Standard Description CPT-49892 IUD Insertion 14:01:03 WATER [employer]IN PIPE [employer]AYER
[2017-07-12] MEDS: PIPER-TAZ 3.375 GM 50 ML IV SCH (22:20)
[2017-07-12] MEDS ORDERED: SODIUM CHLORIDE 0.9% 50ML 50 ML ONE (22:29)
[2017-07-12] MEDS ORDERED: IOPAMIDOL 370 MG/ML 200 ML INFUS..BTL INJ ONE (22:30)
[2017-07-12] MEDS: SODIUM CHLORIDE 0.9% 1000ML 1,000 ML IV SCH (22:40)
[2017-07-12] MEDS: METRONIDAZOLE 500MG/NS 100ML 100 ML IV SCH (22:50)
[2017-07-12 23:00] VITALS: BP 134/74
[2017-07-12] MEDS ORDERED: DIAZEPAM 5 MG TAB PO STA (23:02)
[2017-07-13] VITALS: BP 96/54
[2017-07-13] MEDS: METOCLOPRAMIDE HCL 10 MG/2ML VIAL IV SCH ×3 (00:42→11:39)
[2017-07-13 04:00] VITALS: BP 95/54
[2017-07-13] MEDS: METRONIDAZOLE 500MG/NS 100ML 100 ML IV SCH ×2 (06:33→11:40)
[2017-07-13] MEDS: SODIUM CHLORIDE 0.9% 1000ML 1,000 ML IV SCH ×2 (06:33→11:19)
[2017-07-13] MEDS: PIPER-TAZ 3.375 GM 50 ML IV SCH ×2 (06:34→11:40)
[2017-07-13 06:52] LABS: BASOPHILS % 0.4 % (0.0-1.0); EOSINOPHILS % 0.4 % (0.0-6.0); HEMATOCRIT 33.4 % (34.2-44.1); HEMOGLOBIN 11.3 g/dL (12.0-16.0); LYMPHOCYTES % 9.7 % (18.0-39.1); MEAN CORPUSCULAR HEMOGLOBIN 27.1 pg (28-32); MEAN CORPUSCULAR HGB CONC 33.8 g/dL (31-35); MEAN CORPUSCULAR VOLUME 80.1 fL (81-99); MONOCYTES # (AUTO) 0.4 (0.2-0.8); MONOCYTES % 3.5 % (4.4-11.3); NEUTROPHILS # (AUTO) 8.7 (2.1-6.9); NEUTROPHILS % 85.7 % (38.7-80.0); PLATELET COUNT 389 x10e3/uL (140-360); RED BLOOD COUNT 4.17 x10e6/uL (3.6-5.1); RED CELL DISTRIBUTION WIDTH 15.4 % (11.7-14.4)
[2017-07-13 07:11] LABS: ALANINE AMINOTRANSFERASE 16 IU/L (0-55); ALBUMIN 2.8 g/dL (3.5-5.0); ALKALINE PHOSPHATASE 77 IU/L (40-150); BLOOD UREA NITROGEN 7 mg/dL (7-26); BUN/CREATININE RATIO 12 (6-25); CARBON DIOXIDE 19 mmol/L (22-29); CHLORIDE 104 mmol/L (98-107); EST GLOMERULAR FILTRATION RATE > 60 ML/MIN (60-); GLUCOSE 102 mg/dL (74-118); LIPASE 23 U/L (8-78)
[2017-07-13 07:41] LABS: ALBUMIN/GLOBULIN RATIO 0.9 (0.8-2.0); SODIUM 131 mmol/L (136-145)
[2017-07-13 07:52] LABS: CALCIUM 7.5 mg/dL (8.4-10.2)
[2017-07-13 07:55] VITALS: BP 100/51
[2017-07-13 11:45] VITALS: BP 106/59
== END 2017-07-13 11:52 | disposition left against medical advice (07) | DRG 392 ==
LOC: ER 16:53 → ERHOLD 22:09 → MED/SURG2 23:07
PROVIDERS: ADMIT Internal Medicine; ATTEND Internal Medicine
DX: K31.89 Other diseases of stomach and duodenum (principal); D72.829 Elevated white blood cell count, unspecified; R11.2 Nausea with vomiting, unspecified
CPT/HCPCS: 36415; 74177; 80053; 80307; 81001; 83605; 83690; 84702; 85025; 87040; 87071; 87205; 99284; J0500; J2270; J2543; J2765; J7030; Q9967

== ENCOUNTER 2017-08-25 05:39 | Emergency (ER) | payer SELFPAY ==
[~2017-08-25] VITALS: Ht 147.3 cm; Wt 54.0 kg
--- OUTSIDE RECORDS SUMMARY | 2017-12-04 14:17 | XMS REPORT | Clinical Summary ---
Author Author [facility] Address Unknown Phone Unavailable Care Team Providers Care Hydraulics Teacher Name Role Phone PCP Unavailable Allergies Active [...] vitamin Take 1 tablet by mouth Active w/qustyov-ybty-bboohd daily. ( PLUS) 27 mg iron- 1 [...] (HCC) 02/16/2016 Bipolar affective disorder in remission ([facility]) 02/16/2016 Encounters Date Type Specialty Care Team Description 04/04/2017 [facility] General Internal Medicine Maureen Malloy MD - Encounter 04/07/2017 04/04/2017 Procedure Pass 04/04/2017 Surgery Maureen Malloy MD LAPAROSCOPY,COLECTOMY TOTAL 04/01/2017 Anesthesia Neelima Goetz MD Event 03/29/2017 Hospital Pre-Admission Testing Maureen Malloy MD Bipolar affective Encounter disorder in remission (HCC) 03/07/2017 Emergency Emergency Medicine Bipolar affective disorder in remission (HCC) 03/07/2017 Orders Only General Internal Medicine 02/15/2017 [facility] Lety Perez MD Encounter 02/15/2017 Anesthesia Chase Alvarez Event MD Nabil 02/15/2017 Procedure Pass 02/15/2017 Surgery Lety Perez MD COLONOSCOPY,BIOPSY after 08/24/2016 Family History Medical History Relation Name Comments [...] Taken Blood Pressure 116/70 04/07/2017 12:40 PM COFFEE BREAK ATTENDANT Pulse 90 04/07/2017 12:40 PM COFFEE BREAK ATTENDANT Temperature 36.8 C (98.3 F) 04/07/2017 12:40 PM COFFEE BREAK ATTENDANT Respiratory Rate 18 04/07/2017 12:40 PM COFFEE BREAK ATTENDANT Oxygen Saturation 99% 04/07/2017 12:40 PM COFFEE BREAK ATTENDANT Inhaled Oxygen - - Concentration Weight 51.1 kg (112 lb 9.6 oz) 03/29/2017 10:00 AM COFFEE BREAK ATTENDANT Height 149.9 cm (4' 11") 03/29/2017 10:00 AM COFFEE BREAK ATTENDANT Body Mass Index 22.74 03/29/2017 10:00 AM COFFEE BREAK ATTENDANT Plan of Treatment Not on file Procedures Procedure Name Priority Date/Time Associated Diagnosis Comments CYSTOSCOPY,INSERTION 04/04/2017 Ulcerative colitis, URETERAL STENTS 7:30 AM COFFEE BREAK ATTENDANT unspecified with unspecified complications (CODE) (HCC) Special Needs (LITHOTOMY POSITION, UROLOGY WILL BE CALLING IN SOME STENTS FOR THE PATIENT) LAPAROSCOPY,ILEOSTOMY 04/04/2017 Ulcerative colitis, 7:30 AM COFFEE BREAK ATTENDANT unspecified with unspecified complications (CODE) (HCC) Special Needs (LITHOTOMY POSITION, UROLOGY WILL BE CALLING IN SOME STENTS FOR THE PATIENT) LAPAROSCOPY,COLECTOMY 04/04/2017 Ulcerative colitis, TOTAL 7:30 AM COFFEE BREAK ATTENDANT unspecified with unspecified complications (CODE) (HCC) Special Needs (LITHOTOMY POSITION, UROLOGY WILL BE CALLING IN SOME STENTS FOR THE PATIENT) COLONOSCOPY,BIOPSY 02/15/2017 Ulcerative 2:30 PM COFFEE BREAK ATTENDANT rectosigmoiditis with complication (HCC) after 08/24/2016 Results * CBC (Hemogram only) (04/07/2017 5:11 [...] WBC Specimen Performing Laboratory Blood - Arm, [address] [address] * Phosphorus (04/07/2017 5:11 AM) Only the most recent of 3 results within the time period is included. Component Value Ref Range Phosphorus 3.6 2.3 - 4.7 mg/dL Specimen Performing Laboratory Blood - Arm, [address] [address] * Magnesium (04/07/2017 5:11 AM) Only the most recent of 3 results within the time period is included. Component Value Ref Range Magnesium 1.5 (L) 1.6 - 2.6 mg/dL Specimen Performing Laboratory Blood - Arm, [address] [address] * Basic Metabolic Panel (04/07/2017 5:11 AM) [...] Laboratory Blood - Arm, Right [facility] [address] * Tissue Exam (04/04/2017 12:41 PM) Component Value Ref Range Case Report Surgical Pathology Report Case: [id number] Authorizing Provider: Maureen Malloy MD Collected: 04/04/2017 1241 Ordering Location: [facility] Received: 04/04/2017 1328 SERVICES Pathologist: [...] SEE COMMENT Signing Pathologist Direct Phone Line: [phone] COMMENT Sections show chronic active colitis, involving [...] and radiologic correlation is recommended. CPT Code(s) 20325 CLINICAL HISTORY Ulcerative colitis SPECIMEN SOURCE Total [...] Specimen Performing Laboratory Tissue - Large Intestine, [facility] NOS [address] [place], [place] [address] * POCT , urine (04/04/2017 7:00 AM) Only the most recent of 2 results within the time period is included. Component Value Ref Range Test Urine, POC Negative Control line present?, Yes POC Background clear?, POC Yes UPT Cassette Lot #, POC [id number] UPT Cassette Expiration 08/01/2018 Date, POC Specimen Performing Laboratory Urine * TRANSFUSION SERVICE REPORT - SCAN (03/30/2017 5:53 PM) * Type and screen, automated (03/29/2017 11:17 AM) Component Value Ref Range ABO/RH AUTOMATED (BEAKER) B POSITIVE Ab Scrn NEGATIVE Specimen [place] [address] * CBC with platelet count + automated [...] % Granulocytes-Relative Specimen Performing [place] [address] * CBC with platelet count + automated diff (03/29/2017 11:17 AM) Only the most recent of 2 results within the time period is included. Specimen Performing Laboratory Blood Narrative The following orders were created for panel order CBC with platelet count + automated diff. Procedure Abnormality Status --------- - ------ CBC with platelet count ...[[id number]]AbnormalFinal result Please view results for these tests on the individual orders. * ECG 12 lead (03/29/2017 11:16 AM) Only the most recent of 2 results within the time period is included. Specimen Performing Laboratory GE MUSE Narrative Ventricular Rate 95 BPM Atrial Rate 95 BPM P-R Interval 148 ms QRS Duration 68 ms Q-T Interval 346 ms QTC Calculation(Bazett) 434 ms P [place] 73 degrees R [place] 52 degrees T [place] 33 degrees Normal sinus rhythm with sinus arrhythmia Normal ECG When compared with ECG of 07-MAR-2017 16:47, No significant change was found Confirmed by MD Duncan Roberto ([id number]) on 03/29/2017 1:37:20 PM Procedure Note Interface, External Ris In - 03/29/2017 1:37 PM COFFEE BREAK ATTENDANT Ventricular Rate 95 BPM Atrial Rate 95 BPM P-R Interval 148 ms QRS Duration 68 ms Q-T Interval 346 ms QTC Calculation(Bazett) 434 ms P [place] 73 degrees R [place] 52 degrees T [place] 33 degrees Normal sinus rhythm with sinus arrhythmia Normal ECG When compared with ECG of 07-MAR-2017 16:47, No significant change was found Confirmed by MD Duncan Roberto ([id number]) on 03/29/2017 1:37:20 PM * Rapid Strep A screen (03/07/2017 7:06 PM) Component Value Ref Range Strep A Ag Negative Negative Specimen Performing Laboratory Throat [address] [address] * Comprehensive metabolic panel (03/07/2017 5:33 PM) [...] Specimen Performing Laboratory Blood - Arm, Right [address] [address] * ANATOMIC PATHOLOGY SCANNED - SCAN (02/21/2017 10:32 AM) * REPORT OF PROCEDURE - ENDOSCOPY URL (02/15/2017 4:06 PM) after 08/24/2016
--- OUTSIDE RECORDS SUMMARY | 2017-12-04 14:17 | XMS REPORT ---
Author Author Admin, [place] Organization [facility] Address [address] [place] [phone] Phone Allergies, Adverse Reactions, Alerts Allergy Name Reaction Description Start Date Severity Status Provider No Known Allergies Renetta Anaya WINDOWS ADMINISTRATOR Conditions or Problems Problem Name Problem Code [...] Provider Patient Instruction CLONAZEPAM TABLET CLONAZEPAM TABS [id number] Active Shoshana Franks MD Active WELLBUTRIN TABLET BUPROPION HCL TABS 46505216617 Active Shoshana Franks MD Active Vital Signs [...] Encounters Date Encounter Provider Code Facility 14:01:02 [employer]ATE[employer] Est Patient Problem Focus - 74955 Shoshana Franks MD CPT-87477 [facility] OB 12:35:55 [employer]ATE[employer] New Patient Problem Focus - 07509 Shoshana Franks MD CPT-46486 [facility] OB Procedures Code Procedure Name Date Entry Date Standard Description CPT-11162 IUD Insertion 14:01:03 [employer]
--- OUTSIDE RECORDS SUMMARY | 2017-12-04 14:17 | XMS REPORT | Continuity of Care Document ---
Author Author [facility] Organization [facility] Address [address] [place] [address] Phone Unavailable Care Team Providers Care Systems Test Engineer Name Role Phone LILA DELONG M.D. PCP Insurance Providers Guarantor Kathe Reina Address [address] [place] [address] Email [email or web address] Community Health Choice Policy Number [id number] Subscriber's Name Kathe Reina Relationship 18 Self / Same As Patient Group Number [id number] Group Name [id number] Effective Date 17 Advance Directives Directive Response Recorded Date/Time Does the patient have an advance directive? No 07/12/17 11:00pm If yes, is advance directive on file with [facility]? No 07/12/17 11:00pm If not on file with [facility] will patient provide a copy? No 07/12/17 11:00pm Do you have a Directive to Physician? No 07/12/17 6:26pm Do you have a Medical Power of Store Hand? No 07/12/17 6:26pm Do you have an out of hospital Do Not Resuscitate Order? No 07/12/17 6:26pm Do you have any special needs we should be aware of? No 07/12/17 6:26pm Do you have a support person here with you today? Yes 07/12/17 6:26pm Did patient receive Notice of Privacy Practices? Yes 07/12/17 6:26pm Did patient receive patient rights and responsibilities? Yes 07/12/17 6:26pm Problems Medical Problem Onset Date Status Colitis 05/18/2015 Acute Colitis Unknown Leukocytosis Unknown Partial gastric outlet obstruction Unknown Pneumonia Unknown Vomiting and diarrhea Unknown Medications Current Home Medications Medication Dose Units Route Directions Days Qty Instructions Start Date Clonazepam (Klonopin) 2 Mg Tablet 2 Mg Oral Three Times A Day for Anxiety Methylphenidate Hcl (Ritalin) 10 Mg Tablet 10 Mg Oral Daily as needed for 30 Tab Past Home Medications Medication Directions Ordered Status Acetaminophen 325 Mg/10 Ml Elix, 650 Mg Oral As Needed Discontinued Diazepam 5 Mg Tablet, 10 Mg Oral Daily as needed for Anxiety Discontinued Diazepam 5 Mg Tablet, 5 Mg Oral Twice A Day as needed for Anxiety Discontinued Estradiol 0.5 Mg Tablet, 0.5 Mg Oral Daily Discontinued Ferrous Sulfate 134 Mg Tablet, 28 Mg Oral Daily Discontinued Ferrous Sulfate (Iron) 325 Mg Tablet, Discontinued Lactobacillus Combo No.6 (Probiotic Complex) 1 Each Tablet, 1 Cap Oral Daily Discontinued Mesalamine (Lialda) 1.2 Gm Tablet.dr, 1.25 Mg Oral Four Times Daily Discontinued Vancomycin Hcl 250 Mg Capsule, 250 Mg Oral Daily Discontinued Social History Social History Problem Response Recorded Date/Time Onset Date Status Hx Psychiatric Problems No 07/12/2017 11:00pm Not Applicable Not Applicable Hx Eating Disorder No 07/12/2017 11:00pm Not Applicable Not Applicable Hx Substance Use Disorder No 07/12/2017 11:00pm Not Applicable Not Applicable Hx Depression No 07/12/2017 11:00pm Not Applicable Not Applicable Hx Alcohol Use No 07/12/2017 11:00pm Not Applicable Not Applicable Hx Substance Use Treatment No 07/12/2017 11:00pm Not Applicable Not Applicable Hx Physical Abuse No 07/12/2017 11:00pm Not Applicable Not Applicable Smoking Status Start Date Stop Date Current every day smoker Hospital Discharge Instructions No hospital discharge instruction information available. Plan of Care Discharge Date 07/13/17 11:52am Disposition AGAINST MEDICAL ADVICE Prescriptions See Medication Section Functional Status Query Response Date Recorded Assistive Devices None July 12, 2017 11:00pm Ambulation Ability Independent July 12, 2017 11:00pm Toileting Ability Independent July 12, 2017 11:00pm Allergies, Adverse Reactions, Alerts Allergen Type Severity Reaction Status Last Updated Ketorolac Allergy Mild BRUISING TO ARM Active 07/12/17 Immunizations No immunization information available. Vital Signs Acute Vital Signs Vital Response Date/Time Temperature (Fahrenheit) 97.9 degrees F (97.6 - 99.5) 07/13/2017 7:55am Pulse Pulse Rate (adult) 94 bpm (60 - 90) 07/13/2017 7:55am Respiratory Rate 18 bpm (12 - 24) 07/13/2017 7:55am Blood Pressure 100/51 mm Hg 07/13/2017 7:55am Height 4 ft 10 in 07/12/2017 5:01pm Weight 119.04 lb 07/13/2017 7:55am Body Mass Index 24.9 kg/m^2 07/13/2017 7:55am Results Laboratory Results Test Name Result Units Flags Reference Collection Date/Time Result Date/ Time Comments Urine Mucus MODERATE H RARE 02/27/2017 4:23am 02/27/2017 4:49am Urine Test NEGATIVE NEGATIVE 02/27/2017 4:23am 02/27/2017 4 :41am Influenza Virus Types A,B Antigen NEGATIVE NEGATIVE 02/27/2017 4:23am 02/27/2017 4:56am Group A Streptococcus Screen NEGATIVE NEGATIVE 02/27/2017 4:23am 4:46am White Blood Count 10.16 x10e3/uL 4.8-10.8 07/13/2017 6:35am 07/13/2017 7:04am Red Blood Count 4.17 x10e6/uL 3.6-5.1 07/13/2017 6:35am 07/13/2017 7: 04am Hemoglobin 11.3 g/dL L 12.0-16.0 07/13/2017 6:35am 07/13/2017 7:04am Hematocrit 33.4 % L 34.2-44.1 07/13/2017 6:35am 07/13/2017 7:04am Mean Corpuscular Volume 80.1 fL L 81-99 07/13/2017 6:3507/13/2017 7: 04am Mean Corpuscular Hemoglobin 27.1 pg L 28-32 07/13/2017 6:352017 7:04am Mean Corpuscular Hemoglobin Concent 33.8 g/dL 31-35 07/13/2017 6:3507/13/2017 7:04am Red Cell Distribution Width 15.4 % H 11.7-14.4 07/13/2017 6:352017 7:04am Platelet Count 389 x10e3/uL H 140-360 07/13/2017 6:3507/13/2017 7: 04am Neutrophils (%) (Auto) 85.7 % H 38.7-80.0 07/13/2017 6:3507/13/2017 7 :04am Lymphocytes (%) (Auto) 9.7 % L 18.0-39.1 07/13/2017 6:3507/13/2017 7: 04am Monocytes (%) (Auto) 3.5 % L 4.4-11.3 07/13/2017 6:3507/13/2017 7: 04am Eosinophils (%) (Auto) 0.4 % 0.0-6.0 07/13/2017 6:07/13/2017 7: 04am Basophils (%) (Auto) 0.4 % 0.0-1.0 07/13/2017 6:07/13/2017 7:04am IM GRANULOCYTES % 0.3 % 0.0-1.0 07/13/2017 6:3507/13/2017 7:04am Neutrophils # (Auto) 8.7 H 2.1-6.9 07/13/2017 6:3507/13/2017 7: 04am Lymphocytes # (Auto) 1.0 1.0-3.2 07/13/2017 6:3507/13/2017 7:04am Monocytes # (Auto) 0.4 0.2-0.8 07/13/2017 6:3507/13/2017 7:04am Eosinophils # (Auto) 0.0 0.0-0.4 07/13/2017 6:3507/13/2017 7:04am Basophils # (Auto) 0.0 0.0-0.1 07/13/2017 6:35am 07/13/2017 7:04am Absolute Immature Granulocyte (auto 0.03 x10e3/uL 0-0.1 07/13/2017 6: 35am 07/13/2017 7:04am Urine Color YELLOW YELLOW 07/12/2017 8:45pm 07/12/2017 9:14pm Urine Clarity SL CLOUDY CLEAR 07/12/2017 8:45pm 07/12/2017 9:14pm Urine Specific Bison 1.005 L 1.010-1.025 07/12/2017 8:45pm 2017 9:14pm Urine pH 5 5 - 7 07/12/2017 8:45pm 07/12/2017 9:14pm Urine Leukocyte Esterase NEGATIVE NEGATIVE 07/12/2017 8:45pm 2017 9:14pm Urine Nitrite NEGATIVE NEGATIVE 07/12/2017 8:45pm 07/12/2017 9:14pm Urine Protein TRACE H NEGATIVE 07/12/2017 8:45pm 07/12/2017 9:14pm Urine Glucose (UA) NEGATIVE NEGATIVE 07/12/2017 8:45pm 07/12/2017 9: 14pm Urine Ketones NEGATIVE NEGATIVE 07/12/2017 8:45pm 07/12/2017 9:14pm Urine Opiates Screen NEGATIVE NEGATIVE 07/12/2017 8:45pm 07/12/2017 9 :16pm Urine Barbiturates Screen NEGATIVE NEGATIVE 07/12/2017 8:45pm 2017 9:16pm Urine Phencyclidine Screen NEGATIVE NEGATIVE 07/12/2017 8:45pm 2017 9:16pm Urine Amphetamines Screen NEGATIVE NEGATIVE 07/12/2017 8:45pm 2017 9:16pm Urine Methamphetamines Screen NEGATIVE NEGATIVE 07/12/2017 8:45pm 01/2018 9:16pm Urine Benzodiazepines Screen POSITIVE H NEGATIVE 07/12/2017 8:45pm 01/2018 9:16pm This test provides only a screen. Positive results should be repeated by a confirmatory test. Urine Cocaine Screen NEGATIVE NEGATIVE 07/12/2017 8:45pm 07/12/2017 9 :16pm Urine Cannabinoids Screen NEGATIVE NEGATIVE 07/12/2017 8:45pm 2017 9:16pm THESE RESULTS ARE FOR MEDICAL TREATMENT ONLY *THIS REPORT CONTAINS UNCONFIRMED SCREENING RESULTS* POSITIVE RESULTS WILL BE CONFIRMED BY REFERENCE LAB UPON REQUEST CUT-OFF DRUG CLASS CONCENTRATION ng/mL Amphetamines 1000 Methamphetamines 1000 Cocaine 300 Opiate 300 Phencyclidine 25 Cannabinoid 50 Barbiturates 300 Benzodiazepine 300 Methadone 300 Urine Methadone Screen NEGATIVE NEGATIVE 07/12/2017 8:45pm 2017 9:16pm THESE RESULTS ARE FOR MEDICAL TREATMENT ONLY *THIS REPORT CONTAINS UNCONFIRMED SCREENING RESULTS* POSITIVE RESULTS WILL BE CONFIRMED BY REFERENCE LAB UPON REQUEST CUT-OFF DRUG CLASS CONCENTRATION ng/mL Amphetamines 1000 Methamphetamines 1000 Cocaine Metabolite 300 Opiate 300 Phencyclidine 25 Cannabinoid 50 Barbiturates 300 Benzodiazepine 300 Methadone 300 Urine Urobilinogen 0.2 mg/dL 0.2 - 1 07/12/2017 8:45pm 07/12/2017 9: 14pm Urine Bilirubin NEGATIVE NEGATIVE 07/12/2017 8:45pm 07/12/2017 9: 14pm Urine Blood 4+ H NEGATIVE 07/12/2017 8:45pm 07/12/2017 9:14pm Urine WBC 0-5 /HPF 0-5 07/12/2017 8:45pm 07/12/2017 9:25pm Urine RBC 6-10 /HPF H 0-5 07/12/2017 8:45pm 07/12/2017 9:25pm Urine Bacteria FEW /HPF NONE 07/12/2017 8:45pm 07/12/2017 9:25pm Urine Epithelial Cells MODERATE /LPF NONE 07/12/2017 8:45pm 07/12/2017 9:25pm Urine Transitional Epithelial Cells FEW H NONE 07/12/2017 8:45pm 07/12 9:25pm Sodium Level 131 mmol/L L 136-145 07/13/2017 6:35am 07/13/2017 7:52am Potassium Level 3.0 mmol/L L 3.5-5.1 07/13/2017 6:35am 07/13/2017 7: 17am Chloride Level 104 mmol/L 98-107 07/13/2017 6:35am 07/13/2017 7:17am Carbon Dioxide Level 19 mmol/L L 22-29 07/13/2017 6:35am 07/13/2017 7: 17am Anion Gap 11.0 mmol/L 8-16 07/13/2017 6:3507/13/2017 7:52am Blood Urea Nitrogen 7 mg/dL 7-26 07/13/2017 6:3507/13/2017 7:17am Creatinine 0.60 mg/dL 0.57-1.11 07/13/2017 6:3507/13/2017 7:17am BUN/Creatinine Ratio 12 6-25 07/13/2017 6:3507/13/2017 7:17am Estimat Glomerular Filtration Rate > 60 ML/MIN 60- 07/13/2017 6:35 7:17am Ranges were taken from the National Kidney Disease Education Program and the [employer] literature. Reference ranges: 60 or greater: Normal 16-59 (for 3 consecutive months): Chronic kidney disease 15 or less: Kidney failure Glucose Level 102 mg/dL 74-118 07/13/2017 6:3507/13/2017 7:17am Calcium Level 7.5 mg/dL # L 8.4-10.2 07/13/2017 6:3507/13/2017 7:52am This test has been rerun and double checked for accuracy. Lactic Acid Level 13.7 MG/DL 4.5-19.8 07/12/2017 10:15pm 07/12/2017 10: 45pm Total Bilirubin 1.2 mg/dL 0.2-1.2 07/13/2017 6:3507/13/2017 7:17am Aspartate Amino Transf (AST/SGOT) 18 IU/L 5-34 07/13/2017 6:35am 2017 7:17am Alanine Aminotransferase (ALT/SGPT) 16 IU/L 0-55 07/13/2017 6:3502/2018 7:17am Total Protein 5.8 g/dL # L 6.5-8.1 07/13/2017 6:3507/13/2017 7:52am This test has been rerun and double checked for accuracy. Albumin 2.8 g/dL L 3.5-5.0 07/13/2017 6:35am 07/13/2017 7:17am Globulin 3.0 g/dL 2.3-3.5 07/13/2017 6:3507/13/2017 7:52am Albumin/Globulin Ratio 0.9 0.8-2.0 07/13/2017 6:35am 07/13/2017 7: 52am Alkaline Phosphatase 77 IU/L 40-150 07/13/2017 6:35am 07/13/2017 7: 17am Lipase 23 U/L 8-78 07/13/2017 6:35am 07/13/2017 7:17am Human Chorionic Gonadotropin, Qual NEGATIVE NEGATIVE 07/12/2017 6: 20pm 07/12/2017 7:53pm Procedures Procedure Status Date Provider(s) X-ray of chest, two views Active 02/27/17 KENIA DIXON MD Computed tomography of abdomen and pelvis with contrast Active 07/12/17 KENIA HERNANDES [employer] ASSISTANT Encounters Encounter Location Arrival/Admit Date Discharge/Depart Date Attending Provider Discharged Inpatient [facility] 07/12/17 10:09pm 11:52am CHELSI DAVIS MD Departed Emergency Room [facility] 02/27/17 4:18am 6:13am KENIA DIXON MD
--- OUTSIDE RECORDS SUMMARY | 2017-12-04 14:17 | XMS REPORT | Clinical Summary ---
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 Name Role Phone Asked, Pcp PCP Unavailable [...] Encounters Date Type Specialty Care Team Description 08/25/2017 Emergency Emergency Medicine Dez Ny Upper respiratory tract MD Soco infection, unspecified type (Primary Dx); Back strain, initial encounter 05/13/2017 Emergency Emergency Medicine Violet Jules MD Acute bronchitis, unspecified organism (Primary Dx) 03/11/2017 Emergency Emergency Medicine Sánchez Moraes MD Cough ( Primary Dx) 03/07/2017 Emergency Emergency Medicine Jigar Leon MD Dental impaction (Primary - Dx); 03/08/2017 Leukocytosis, unspecified type; Thrombocytosis after 08/24/2016 Social History Tobacco Use Types Packs/Day Years Used Date Never Smoker Smokeless Tobacco: Never Used Alcohol Use Drinks/Week oz/Week Comments Yes occasionally Sex Assigned at Date Recorded Not on file Last Filed Vital Signs Vital Sign Reading Time Taken Blood Pressure 114/76 08/25/2017 6:55 AM CDT Pulse 79 08/25/2017 6:55 AM CDT Temperature 36.2 C (97.2 F) 08/25/2017 6:55 AM CDT Respiratory Rate 18 08/25/2017 6:55 AM CDT Oxygen Saturation 99% 08/25/2017 6:55 AM CDT Inhaled Oxygen - - Concentration Weight 54 kg (119 lb) 08/25/2017 6:55 AM CDT Height 149.9 cm (4' 11") 08/25/2017 6:55 AM CDT Body Mass Index 24.04 08/25/2017 6:55 AM CDT Plan of Treatment Health Maintenance Due Date Last Done Comments CERVICAL CANCER SCREENING 11/09/2011 INFLUENZA VACCINE 10/02/2017 Procedures Procedure Name Priority Date/Time Associated Diagnosis Comments HCG QUALITATIVE, URINE STAT 08/25/2017 Results for this SCREEN 7:04 AM CDT procedure are in the results section. URINALYSIS STAT 08/25/2017 Results for this 7:04 AM CDT procedure are in the results section. ED REFERRAL TO [place] Routine 05/13/2017 [facility] PHYSICIAN 3:[address] ANGIOGRAM PE CHEST STAT 05/13/2017 Results for this 3:26 PM CDT procedure are in the results section. ZZESTIMATED GFR STAT 05/13/2017 Results for this 2:17 PM CDT procedure are in the results section. HC COMPLETE BLD COUNT STAT 05/13/2017 Results for this W/AUTO DIFF 2:17 PM CDT procedure are in the results section. BASIC METABOLIC PANEL STAT 05/13/2017 Results for this 2:17 PM CDT procedure are in the results section. HCG QUALITATIVE, URINE STAT 05/13/2017 Results for this SCREEN 1:19 PM CDT procedure are in the results section. URINALYSIS STAT 05/13/2017 Results for this 1:19 PM CDT procedure are in the results section. ECG ED PRELIMINARY Routine 05/13/2017 Results for this INTERPRETATION 1:03 PM CDT procedure are in the results section. ECG 12-LEAD Routine 05/13/2017 Results for this 12:59 PM CDT procedure are in the results section. CT ANGIOGRAM PE CHEST STAT 03/11/2017 Results for this 3:33 PM [employer]IDE [employer] procedure are in the results section. URINALYSIS STAT 03/11/2017 Results for this 3:21 PM [employer] procedure are in the results section. XR CHEST 2 VW STAT 03/11/2017 Results for this 2:50 PM [employer] procedure are in the results section. ECG ED PRELIMINARY Routine 03/11/2017 Results for this INTERPRETATION 2:21 PM [employer] procedure are in the results section. SMEAR REVIEW STAT 03/11/2017 Results for this 1:38 PM [employer] procedure are in the results section. ZZESTIMATED GFR STAT 03/11/2017 Results for this 1:38 PM [employer] procedure are in the results section. D-DIMER STAT 03/11/2017 Results for this 1:38 PM [employer] procedure are in the results section. B NATRIURETIC PEP, I-STAT STAT 03/11/2017 Results for this 1:38 PM [employer] procedure are in the results section. TROPONIN, I-STAT STAT 03/11/2017 Results for this 1:38 PM [employer] procedure are in the results section. HC COMPLETE BLD COUNT STAT 03/11/2017 Results for this W/AUTO DIFF 1:38 PM [employer] procedure are in the results section. BASIC METABOLIC PANEL STAT 03/11/2017 Results for this 1:38 PM [employer] procedure are in the results section. ECG 12-LEAD STAT 03/11/2017 Results for this 12:56 PM [employer] procedure are in the results section. ECG ED PRELIMINARY Routine 03/08/2017 Results for this INTERPRETATION 12:18 AM [employer] procedure are in the results section. ECG 12-LEAD STAT 03/07/2017 Results for this 11:12 PM [employer] procedure are in the results section. MANUAL DIFFERENTIAL STAT 03/07/2017 Results for this 11:08 PM [employer] procedure are in the results section. ZZESTIMATED GFR STAT 03/07/2017 Results for this 11:08 PM [employer] procedure are in the results section. LACTIC ACID, I-STAT STAT 03/07/2017 Results for this 11:08 PM [employer] procedure are in the results section. COMPREHENSIVE METABOLIC STAT 03/07/2017 Results for this PANEL 11:08 PM [employer] procedure are in the results section. CBC WITH PLATELET AND STAT 03/07/2017 Results for this DIFFERENTIAL 11:08 PM [employer] procedure are in the results section. BLOOD CULTURE, AEROBIC & Routine 03/07/2017 Results for this ANAEROBIC 11:05 PM [employer] procedure are in the results section. BLOOD CULTURE, AEROBIC & Routine 03/07/2017 Results for this ANAEROBIC 11:00 PM [employer] procedure are in the results section. HCG QUALITATIVE, URINE STAT 03/07/2017 Results for this SCREEN 10:59 PM [employer] procedure are in the results section. URINALYSIS STAT 03/07/2017 Results for this 10:59 PM [employer] procedure are in the results section. INFLUENZA ANTIGEN Routine 03/07/2017 Results for this 10:53 PM [employer] procedure are in the results section. after 08/24/2016 Results * Urinalysis (08/25/2017 7:04 AM) Only the most recent of 4 results within the time period is included. Glucose, UA Negative Negative [facility] Bilirubin, UA Negative Negative [facility] Ketones, UA Negative Negative [facility] Specific gravity, UA 1.025 1.001 - 1.035 [facility] Blood, UA Small (A) Negative [facility] pH, UA 5.5 5.0 - 8.5 [facility] Protein, UA Negative Negative [facility] Urobilinogen, UA <2.0 <2.0 [facility] Nitrite, UA Negative Negative [facility] Leukocyte esterase, UA Negative Negative [facility] Color, UA Yellow [facility] Appearance, UA Clear [facility] Specimen Urine Performing Organization Address City/[facility] [place] [address] PATHOLOGY AND [facility] * hCG qualitative, urine screen (08/25/2017 7:04 AM) Only the most recent of 3 results within the time period is included. hCG qualitative, urine NegativeComment: Sensitivity DEPARTMENT OF of HCG test: 25 mIU/mL [facility] Specimen Urine Performing Organization Address City/[facility]/[place] [address] PATHOLOGY AND [facility] * CT Angiogram Pe Chest (05/13/2017 3:26 PM) Only the most recent of 2 results within the time period is included. Narrative Performed At EXAMINATION: RADIANT CT ANGIOGRAM PE CHEST CLINICAL HISTORY: shortness [...] process. 4. There are no pleural effusions. [facility]-[id number] Procedure Note Interface, Radiology Results Incoming - [...] process. 4. There are no pleural effusions. [facility]-[id number] Performing Organization Address City/State/Zipcode Phone Number [place] [address] [place] [address] * Estimated GFR (05/13/2017 2:17 PM) Only the most recent of 3 results within the time period is included. GFR Non Af Amer >90 mL/min/1.73 m2 DEPARTMENT OF PATHOLOGY AND GENOMIC MEDICINE, [facility] GFR Af Amer >90 mL/min/1.73 m2 DEPARTMENT OF Comment: PATHOLOGY AND Chronic kidney disease: <60 [facility] MEDICINE, mL/min/1.73m2 [facility] Kidney failure: <15 [facility] mL/min/1.73m2 The estimated GFR is calculated from the IDMS-traceable Modification of Diet in Renal Disease Equation. The accuracy of the calculation is poor when the creatinine is normal. Calculated values >90 mL/min/1.73m2 are not reported. This equation has not been validated in children (<18 years), women, the elderly (>70 years), or ethnic groups other than Caucasians and Americans. Specimen Plasma specimen Performing Organization Address City/State/Zipcode Phone Number [address] [address] [facility] * CBC with platelet and differential (05/13/2017 2:17 PM) Only the most recent of 3 results within the time period is included. WBC 12.90 (H) 4.50 - 11.00 k/uL [facility] RBC 5.60 (H) 4.20 - 5.50 m/uL [facility] HGB 15.6 12.0 - 16.0 g/dL [facility] HCT 46.8 37.0 - 47.0 % [facility] MCV 83.6 82.0 - 100.0 fL [facility] MCH 27.9 27.0 - 34.0 pg [facility] MCHC 33.3 31.0 - 37.0 g/dL [facility] RDW - SD 46.9 37.0 - 55.0 fL [facility] MPV 10.6 8.8 - 13.2 fL [facility] Platelet count 402 (H) 150 - 400 k/uL [facility] Neutrophils 79.6 (H) 39.0 - 69.0 % [facility] Lymphocytes 12.6 (L) 25.0 - 45.0 % [facility] Monocytes 6.0 0.0 - 10.0 % [facility] Eosinophils 1.6 0.0 - 5.0 % [facility] Basophils 0.2 0.0 - 1.0 % [facility] Specimen Blood Performing Organization Address City/State/Zipcode Phone Number [address] [address] PATH[facility] * Basic metabolic panel (05/13/2017 2:17 PM) Only the most recent of 2 results within the time period is included. Glucose 98 73 - 118 mg/dL [facility] BUN 2 (L) 7 - 22 mg/dL [facility] Calcium 9.4 8.0 - 10.3 mg/dL [facility] Creatinine 0.4 (L) 0.6 - 1.2 mg/dL [facility] Sodium 133 128 - 145 mEq/L [facility] Potassium 4.0 3.6 - 5.1 mEq/L [facility] Chloride 95 (L) 98 - 108 mEq/L [facility] CO2 26 18 - 33 mEq/L [facility] Anion gap 12 7 - 15 mEq/L DEPARTMENT OF Comment: PATHOLOGY AND Starting from June GENOMIC MEDICINE, , anion gap calculation [facility] potassium. Please note the change. Specimen Plasma specimen Performing Organization Address City/State/Zipcode Phone Number [place] [phone] [place] [address] PATHOLOGY AND [facility] * ECG ED Preliminary Interpretation - NOT AN ORDER (05/13/2017 1:03 PM) Only the most recent of 3 results within the time period is included. Narrative Performed At Violet Jules MD 05/13/2017 7:04 PM ECG ED Preliminary Interpretation - Not an Order Performed by: VIOLET JULES Authorized by: VIOLET JULES ECG reviewed by ED Physician in the absence of a roll slicing machine tender: no Previous ECG: Previous ECG: Unavailable Interpretation: Interpretation: normal Rate: ECG rate: 102 ECG rate assessment: tachycardic Rhythm: Rhythm: sinus tachycardia Ectopy: Ectopy: none QRS: QRS axis: Normal Conduction: Conduction: normal ST segments: ST segments: Normal T waves: T waves: normal * ECG 12 lead (05/13/2017 12:59 PM) Only the most recent of 3 results within the time period is included. Ventricular rate 102 [facility] Atrial rate 102 [facility] WV interval 134 [facility] QRSD interval 68 [facility] QT interval 328 [facility] QTC interval 427 [facility] P axis 1 76 [facility] QRS axis 1 50 [facility] T wave axis 32 [facility] EKG impression Sinus tachycardia-Otherwise [facility] MUSE normal ECG-In automated comparison with ECG of 11-MAR-2017 12:56,-No significant change was found- Performing Organization Address City/[facility]ode Phone Number [facility] MUSE [address] [place] [address] * XR Chest 2 Vw (03/11/2017 2:50 PM) Narrative Performed At EXAMINATION: XR CHEST 2 VW [facility] CLINICAL HISTORY: Chest Pain, Cough XR CHEST 2 VW images are submitted COMPARISON: NONE FINDINGS: Lines/tubes: None. Heart and mediastinum: Unremarkable Lungs: The lungs are well inflated and clear. There is no evidence of pneumonia or pulmonary edema. Pleura: There is no pleural effusion or pneumothorax. Bones: Mild dextroconvex scoliotic deviation of the thoracic spine. IMPRESSION: Negative for acute cardiopulmonary disease. [facility]-[id number] Procedure Note Interface, Radiology Results Incoming - 03/11/2017 3:03 PM [employer]IDE [employer] EXAMINATION: XR CHEST 2 VW CLINICAL HISTORY: [...] spine. IMPRESSION: Negative for acute cardiopulmonary disease. [id number] Performing Organization Address City/[facility]ode Phone Number [facility] [address] [place] [address] * Smear review (03/11/2017 1:38 PM) Platelet slide review Mkd increased (A) DEPARTMENT OF PATHOLOGY AND GENOMIC MEDICINE, [facility] Polychromasia Moderate DEPARTMENT OF PATHOLOGY AND GENOMIC MEDICINE, [facility] Enlarged platelets Moderate (A) DEPARTMENT OF PATHOLOGY AND GENOMIC MEDICINE, [facility] Performing Organization Address City/State/[place] [address] PATHOLOG[facility] * Troponin, I-Stat (03/11/2017 1:38 PM) Troponin, I-Stat 0.00 0.00 - 0.08 ng/mL DEPARTMENT OF Comment: PATHOLOGY AND 0.09 - 1.49 GENOMIC MEDICINE, ng/ml May [facility] indicate increased risk of [facility] acute coronary syndrome. >=1.5 ng/ml Consistent with acute myocardial infarction. The diagnostic value of a single normal or non-diagnostic result is questionable. Serial samples at 2-6 hour intervals are required to rule out acute myocardial injury. Specimen Plasma specimen Performing Organization Address City/[facility]/[place] [address] PATHOLOG[facility] * B natriuretic pep, I-Stat (03/11/2017 1:38 PM) BNP, I-Stat <20 0 - 100 pg/mL DEPARTMENT OF PATHOLOGY [facility] Specimen Blood Performing Organization Address City/State/[place] [address] PATHOLOGY AND [facility] * D-dimer (03/11/2017 1:38 PM) D-dimer 0.65 (H) 0.00 - 0.40 ug/mL FEU [facility] DEPARTMENT OF Comment: PATHOLOGY AND Units are ug/ml Fibrinogen [facility] Equivalent Unit. When combined with low clinical [...] trauma, post-operative states, sepsis, and malignancies. Specimen Blood Performing Organization Address City/State/Zipcode Phone Number [address] [address] PATHOLOGY AND GENOMIC MEDICINE * Lactic acid, I-Stat (03/07/2017 11:08 PM) Lactic acid, I-Stat 1.3 0.5 - 2.2 mmol/L [facility] Specimen Plasma specimen Performing Organization Address City/[facility]/Zipcode Phone Number [address] [address] PATHOLOG[facility] AND [facility] * Manual differential (03/07/2017 11:08 PM) Manual differential PERFORMED [facility] DEPARTMENT OF PATHOLOGY AND GENOMIC MEDICINE Neutrophils 66.0 39.0 - 69.0 % [facility] DEPARTMENT OF PATHOLOGY AND GENOMIC MEDICINE Lymphocytes 17.0 (L) 25.0 - 45.0 % [facility] DEPARTMENT OF PATHOLOGY AND GENOMIC MEDICINE Monocytes 8.0 0.0 - 10.0 % [facility] DEPARTMENT OF PATHOLOGY AND GENOMIC MEDICINE Eosinophils 9.0 (H) 0.0 - 5.0 % [facility] DEPARTMENT OF PATHOLOGY AND GENOMIC MEDICINE Basophils 0.0 0.0 - 1.0 % [facility] DEPARTMENT OF PATHOLOGY AND GENOMIC MEDICINE Platelet slide review Mkd increased (A) [facility] DEPARTMENT OF PATHOLOGY AND GENOMIC MEDICINE Enlarged platelets Moderate (A) [facility] DEPARTMENT OF PATHOLOGY AND GENOMIC MEDICINE Giant platelets Occasional [facility] DEPARTMENT OF PATHOLOGY AND GENOMIC MEDICINE Performing Organization Address City/[facility]/Zipcode Phone Number [address] [address] PATHOLOGY AND GENOMIC MEDICINE * Comprehensive metabolic panel (03/07/2017 11:08 PM) Sodium 137 128 - 145 mEq/L [facility] Potassium 4.3 3.6 - 5.1 mEq/L [facility] CO2 27 18 - 33 mEq/L [facility] Chloride 107 98 - 108 mEq/L [facility] Glucose 87 73 - 118 mg/dL DEPART[facility] OF [facility]OLOGY [facility] Calcium 8.8 8.0 - 10.3 mg/dL [facility] BUN 4 (L) 7 - 22 mg/dL [facility] Creatinine 0.7 0.6 - 1.2 mg/dL DEPARTMENT OF PATHOLOGY AND GENOMIC MEDICINE, [facility] Alkaline phosphatase 128 42 - 141 U/L [facility] ALT 19 10 - 47 U/L DEPART[facility] OF PATHOLOGY [facility] AST 25 11 - 38 U/L DE[facility]OLOG[facility] Total bilirubin 0.4 0.2 - 1.6 mg/dL [facility] Albumin 2.6 (L) 3.3 - 5.5 g/dL [facility] Protein 7.1 6.4 - 8.1 g/dL [facility] Anion gap 3 (L) 7 - 15 mEq/L DEPARTMENT OF Comment: PATHOLOGY AND Starting from June GENOMIC MEDICINE, , anion gap calculation [facility] potassium. Please note the change. A/G ratio 0.6 (L) 0.7 - 3.8 DE[facility]OLOG[facility] Specimen Plasma specimen Performing Organization Address City/[facility]/Zipcode Phone Number [address] [address] PATHOLOGY AND [facility] * Blood culture, aerobic & anaerobic (03/07/2017 11:05 PM) Only the most recent of 2 results within the time period is included. Blood culture isolate No growth after 5 days of [facility] DEPARTMENT OF incubation. PATHOLOGY AND Comment: GENOMIC MEDICINE Specimen Information Specimen Source: Blood Specimen Site: Hand, left Specimen Blood - Hand, left Performing Organization Address City/State/Zipcode Phone Number [facility] DEPARTMENT OF [address] [place] [address] PATHOLOGY AND GENOMIC MEDICINE * Influenza antigen (03/07/2017 10:53 PM) Influenza antigen Negative for Influenza A/B DEPARTMENT OF antigen. PATHOLOGY AND Comment: GENOMIC MEDICINE, Specimen Information [facility] Specimen Source: [facility] Specimen Site: Not specified Specimen Nares - Not specified Performing Organization Address City/[facility]/Zipcode Phone Number DEPARTMENT [address] [address] PATHOLOGY AND GENOMIC MEDICINE, [facility] after 08/24/2016 Insurance Payer Benefit Subscriber ID Type Phone Address Plan / Group [employer] ON LICENSE OF [facility] xxxxxxxxxxxx Exchange EXCHANGE PSYCHIATRIC EXCHANGE [employer]AC E
== END 2017-08-25 06:16 | disposition left against medical advice (07) ==
LOC: ER 05:39
DX: M54.5 Low back pain (principal)